=== PATIENT | male | born 1935 | race Hispanic/Latino ===

== ENCOUNTER 2018-05-28 19:13 | Inpatient (IN) | payer MEDICAID, SELFPAY ==
[2018-05-28] MEDS ORDERED: Morphine 2 MG/ML SYRINGE ONE (20:19)
[2018-05-28] MEDS ORDERED: Ondansetron PF 4 MG/2 ML Vial ONE ×2 (20:19→23:20)
[2018-05-28 20:23] LABS: #Basophils 0.1 thou/uL (0.0-0.2); #Eosinphils 0.3 thou/uL (0.0-0.7); #Lymphocytes 1.2 thou/uL (1.20-3.40); #Monocytes 0.5 thou/uL (0.11-0.59); #Neutrophils 5.2 thou/uL (1.40-6.50); %Basophils 0.9 % (0.0-1.0); %Eosinophils 4.3 % (0.0-10.0); %Lymphocytes 16.2 % (21.0-51.0); %Monocytes 7.3 % (0.0-10.0); %Neutrophils 71.4 % (42.0-75.0); Hemoglobin 13.4 g/dL (14.0-18.0); Mean Corpuscular HGB CONC 32.6 g/dL (32.0-36.0); Mean Corpuscular Hemoglobin 27.6 pg (27.0-31.0); Mean Corpuscular Volume 84.8 fL (78.0-98.0); Mean Platelet Volume 9.8 fL (7.4-10.4); Platelet Count 250 thou/uL (130-400); RBC Distribution Width 14.5 % (11.5-14.5); Red Blood Cell (RBC) Count 4.85 mill/uL (4.70-6.10); White Blood Cell (WBC) Count 7.3 thou/uL (4.8-10.8)
[2018-05-28 20:47] LABS: ALT (SGPT) 17 U/L (8-55); AST (SGOT) 35 U/L (5-34); Albumin 2.6 g/dL (3.4-4.8); Alkaline Phosphatase 147 U/L (40-150); Anion Gap 17 mmol/L (10-20); BUN (Urea Nitrogen) 24 mg/dL (8.4-25.7); Bilirubin, Total 0.9 mg/dL (0.2-1.2); Calc. Creatinine Clearance 0 mL/min (70-130); Calcium 8.4 mg/dL (7.8-10.44); Carbon Dioxide 18 mmol/L (23-31); Chloride 104 mmol/L (98-107); Estimated GFR-MDRD 45; Globulin 5.4 g/dL (2.4-3.5); Glucose 166 mg/dL (83-110); Lipase 34 U/L (8-78); Potassium 4.8 mmol/L (3.5-5.1); Sodium 134 mmol/L (136-145)
[2018-05-28] MEDS ORDERED: Labetalol HCl 100 MG/20 ML VIAL ONE (21:02)
[2018-05-28 21:42] LABS: CKMB 5.9 ng/mL (0-6.6)
--- NOTE | 2018-05-28 21:45 | RAD ---
CHEST ONE VIEW PORTABLE: 05/28/18 HISTORY: 82-year-old male with history of back pain for five days. Monitor leads overlie the chest. There are bilateral vascular congestive changes as well as interstit ial and alveolar parenchymal changes in the perihilar regions and lower lung zones with bilateral ple ural effusions. Findings are evidence for bilateral edema, although bilateral pneumonia could have a similar radiographic appearance. Correlate clinically. IMPRESSION: Bilateral vascular congestion and interstitial and alveolar parenchymal changes, primarily in the per ihilar regions and lower lung zones with bilateral pleural effusions, evidence for bilateral pulmonar y edema, although bilateral pneumonia could have a similar appearance. No old studies. POS: [facility]
[2018-05-28] MEDS ORDERED: Nitroglycerin 2% Ointment 1 INCH/1 GM Packet ONE (22:25)
--- NOTE | 2018-05-28 22:28 | CT ---
BRAIN CT WITHOUT IV CONTRAST: 05/28/18 HISTORY: Stroke alert. 82-year-old male with altered mental status and syncope. No focal mass or midline shift. No intra or extra-axial hemorrhage. There is some sinus mucosal bliss es. The mastoids are clear. IMPRESSION: No significant acute intracranial process. No mass or bleed. Findings discussed with Maddie Lord at 10:08 p.m. Code CR POS: [facility]
--- NOTE | 2018-05-28 22:46 | CT ---
CHEST CT SCAN WITH IV CONTRAST: 05/28/18 HISTORY: 82-year-old male with history of altered mental status, back pain for days. Exam was done following the head CTA, so this is an exam performed with IV contrast. Large bilateral pleural effusions are noted. Bilateral pleural based parenchymal changes, evidence fo r bilateral subsegmental atelectasis. Evidence for some bilateral vascular congestion. No evidence fo r aortic aneurysm. The central pulmonary arteries appear to be free of thrombus. Right renal cyst. Th e visualized liver, pancreas and spleen are unremarkable. No evidence for pneumothorax. No evidence f or visualized thoracic spine fracture. IMPRESSION: Large bilateral pleural effusions with bibasilar pleural based parenchymal changes evidence for subse gmental atelectasis. Bilateral vascular congestion. No pericardial effusion. No evidence for aortic a neurysm. The central pulmonary arteries are free of thrombus. Small right renal cyst. POS: [facility]
--- NOTE | 2018-05-28 23:39 | CT ---
CT ANGIOGRAM HEAD WITH 3D RENDERING CT ANGIOGRAM NECK WITH 3D RENDERIN05/28/18 HISTORY: AMS Syncapy unresponsive Initial attempt at the scan demonstrated no contrast media within the neck or head. The exam was rep eated and on this study there is only very dilute contrast media within the neck and head. It does no t appear that any additional new contrast media was injected at the time of the second study. CT ANGIOGRAM HEAD WITH 3D RENDERING: Limited contrast density considerably lowers the sensitivity of this study. No evidence for an M1 seg ment occlusion. Vertebrobasilar arteries appear intact. IMPRESSION: Limited study. No evidence for an M1 segment occlusion. CT ANGIOGRAM NECK WITH 3D RENDERING: Contrast concentration within the neck vessels is very severely limited. On the left side, at the dis dilip CCA, proximal ICA origin there is evidence for a large calcified and noncalcified plaque. I feel that this is associated with a high grade of stenosis although the exact degree of stenosis cannot be determined from this study due to lack of contrast density. The vertebral arteries in the neck are i nadequately seen. I certainly cannot exclude other stenotic changes within the neck vessels. IMPRESSION: Fairly large calcified and noncalcified plaque in the junction of the distal CCA, proximal ICA on the left side. This is certainly worrisome for a high grade sclerotic stenosis although cannot be furthe r characterized. The remainder of the neck vessels are inadequately seen to comment upon stenosis. Findings are discussed with Maddie Lord in the ER at 2328 hours. POS: [facility]
[2018-05-28] MEDS ORDERED: Enoxaparin Sodium 60 MG/0.6 ML SYRINGE ONE (23:44)
[2018-05-29] MEDS ORDERED: Furosemide 40 MG/4 ML VIAL ONE (00:26)
[2018-05-29 01:10] LABS: Actual Bicarbonate (HCO3a) 15.5 mEq/L (22-28); Analyzer IN Cardio ER; Base Excess (BEa) -7.5 mEq/L (-2.0 to +3.0); Calcium, Ionized 1.06 mmol/L (1.12-1.30); Carboxyhemoglobin (COHb) 0.4 gm% (0.0-3.0); O2 Tension (PaO2) 90.9 mmHg (> 60.0); Potassium - ABG Lab 5.29 mmol/L (3.70-5.30); pH, Arterial 7.41 (7.35-7.45)
[2018-05-29 01:12] LABS: ALV-art Gradient 77.115 (0-20); CO2 Tension 25.3 mmHg (35.0-45.0); Puncture Site RRA
[2018-05-29 02:59] LABS: Troponin I 0.946 ng/mL (< 0.028)
[2018-05-29] MEDS ORDERED: Senokot S 8.6-50 MG TAB PO PRN (03:15)
[2018-05-29] MEDS ORDERED: Acetaminophen 325 MG TAB PO PRN (03:15)
[2018-05-29] MEDS ORDERED: Bisacodyl 5 MG TAB PO PRN (03:15)
[2018-05-29 06:08] LABS: #Lymphocytes 0.4 thou/uL (1.20-3.40); #Monocytes 0.4 thou/uL (0.11-0.59); #Neutrophils 8.1 thou/uL (1.40-6.50); %Basophils 0.1 % (0.0-1.0); %Eosinophils 0.3 % (0.0-10.0); %Lymphocytes 4.9 % (21.0-51.0); %Monocytes 4.8 % (0.0-10.0); Hemoglobin 12.6 g/dL (14.0-18.0); Mean Corpuscular HGB CONC 32.4 g/dL (32.0-36.0); Mean Corpuscular Hemoglobin 27.7 pg (27.0-31.0); Mean Corpuscular Volume 85.6 fL (78.0-98.0); Mean Platelet Volume 10.3 fL (7.4-10.4); Platelet Count 230 thou/uL (130-400); RBC Distribution Width 14.6 % (11.5-14.5); Red Blood Cell (RBC) Count 4.53 mill/uL (4.70-6.10); White Blood Cell (WBC) Count 8.9 thou/uL (4.8-10.8)
[2018-05-29 06:14] LABS: Anion Gap 18 mmol/L (10-20); BUN (Urea Nitrogen) 28 mg/dL (8.4-25.7); Calc. Creatinine Clearance 37 mL/min (70-130); Calcium 8.2 mg/dL (7.8-10.44); Carbon Dioxide 20 mmol/L (23-31); Chloride 102 mmol/L (98-107); Estimated GFR-MDRD 40; Glucose 199 mg/dL (83-110); Potassium 5.6 mmol/L (3.5-5.1); Sodium 134 mmol/L (136-145)
[2018-05-29] MEDS: Furosemide 40 MG/4 ML VIAL SLOW IVP SCH ×2 (06:14→14:01)
[2018-05-29] MEDS ORDERED: Dextrose 50% Abboject 50 ML SYRINGE SLOW IVP PRN (08:26)
[2018-05-29] MEDS ORDERED: Dextrose 5% in Water 1,000 ML IV PRN (08:26)
--- NOTE | 2018-05-29 08:36 | PDOC.PN ---
- Subjective Encounter Start Date: 05/29/18 Encounter Start Time: 08:32 Subjective: neck pain, sob - Objective Resuscitation Status - Order Detail: 05/29/18 01:43 Resuscitation Status Routine Resuscitation Status: FULL: Full Resuscitation MAR Reviewed: Yes Vital Signs & Weight: Vital Signs (12 hours) Temp Pulse Resp BP Pulse Ox 05/29/18 07:50 98.9 F 96 14 125/100 H 100 05/29/18 04:45 97.6 F 05/29/18 04:00 96.0 F L 92 24 H 125/105 H 100 05/29/18 01:35 96.8 F L 99 20 143/107 H 100 Weight Weight 162 lb 6 oz I&O: 05/28/18 05/29/18 05/30/18 06:59 06:59 06:59 Output Total 150 Balance -150 Result Diagrams: 05/29/18 04:18 05/29/18 04:18 Radiology Reviewed by me: Yes (cxr- PCC) EKG Reviewed by me: Yes (RSR, S) Phys Exam - Physical Examination Cardiovascular: RRR, no significant murmur Gastrointestinal: soft, positive bowel sounds Musculoskeletal: no edema Dx/Plan (1) Acute heart failure Code(s): I50.9 - HEART FAILURE, UNSPECIFIED Status: Acute Qualifiers: Heart failure type: unspecified Qualified Code(s): I50.9 - Heart failure, unspecified (2) NSTEMI (non-ST elevated myocardial infarction) Code(s): I21.4 - NON-ST ELEVATION (NSTEMI) MYOCARDIAL INFARCTION Status: Acute (3) DM type 2 causing CKD stage 3 Code(s): E11.22 - TYPE 2 DIABETES MELLITUS W DIABETIC CHRONIC KIDNEY DISEASE; N18.3 - CHRONIC KIDNEY DISEASE, STAGE 3 (MODERATE) Status: Acute Qualifiers: Diabetes mellitus snf insulin use: without moth exterminator use Qualified Code(s): E11.22 - Type 2 diabetes mellitus with diabetic chronic kidney disease ; N18.3 - Chronic kidney disease, stage 3 (moderate) (4) HTN (hypertension) Code(s): I10 - ESSENTIAL (PRIMARY) HYPERTENSION Status: Chronic Qualifiers: Hypertension type: essential hypertension Qualified Code(s): I10 - Essential (primary) hypertension - Plan lasix 40 bid, apresoline 25 tid, imdur 30 qam. no DOLORES/ARB- CKD -: lovenox Tx dose -: echo pending * .
[2018-05-29] MEDS ORDERED: Prevnar 13-Val Conj/PF 0.5 ML SYRINGE IM ONE (09:00)
[2018-05-29] MEDS ORDERED: Enoxaparin Sodium 30 MG/0.3 ML SYRINGE SC SCH (09:00)
[2018-05-29] MEDS: hydrALAZINE 25 MG TAB PO SCH ×3 (09:27→20:34)
[2018-05-29] MEDS: Famotidine 20 MG TAB PO SCH (09:27)
[2018-05-29] MEDS: Enoxaparin Sodium 80 MG/0.8 ML SYRINGE SC SCH ×2 (09:27→20:35)
[2018-05-29] MEDS: Famotidine/PF 20 mg/2ml Vial SLOW IVP SCH (09:29)
--- NOTE | 2018-05-29 09:54 | HP ---
CHIEF COMPLAINT: Shortness of breath. HISTORY OF PRESENT ILLNESS: This is an 82-year-old male with past medical history of leukemia, diabetes mellitus presenting with shortness of breath which has been ongoing for one day. On the day of admission, the patient was having severe shortness of breath and daughter stated that due to the shortness of breath, it prompted the ED visit. The patient is also having associated symptom of back pain which has been ongoing for four days. The patient's back pain is rated at 6/10. Upon further investigation, the patient's daughter stated that the patient has been having difficulty with breathing. He has been having chest congestion and "the patient looks very sick." The patient currently endorses shortness of breath and cough, but denies any fever, nausea, vomiting, chest pain, palpitations, abdominal pain, dysuria, hematuria, hematochezia, melena. Of note, in the ED the patient was noted to have diaphoresis, alteration of awareness, and the patient was not responsive as he was when he came in. REVIEW OF SYSTEMS: Positive for back pain, cough, shortness of breath. PAST MEDICAL HISTORY: Leukemia, hypertension, diabetes mellitus. FAMILY HISTORY: Reviewed, noncontributory to this visit. PAST SURGICAL HISTORY: No surgical history. PSYCH HISTORY: No psych history. SOCIAL HISTORY: The patient denies alcohol use. Denies any illicit drug use. Denies any smoking history. CURRENT MEDICATIONS: The patient takes metformin. ALLERGIES: NO KNOWN DRUG ALLERGIES. PHYSICAL EXAMINATION: VITAL SIGNS: The patient's blood pressure is 143/124, pulse of 98, respiratory rate of 17, and temperature of 97.8. GENERAL: The patient is alert, oriented x3, not in acute distress. The patient is lying in bed and the patient is in mild distress. HEENT: Normocephalic and atraumatic. Pupils are equally round and reactive to light. Extraocular movements are intact. No scleral icterus. The patient do have nasal cannula in place. Mucous membranes are dry. NECK: There is mild JVD that can be appreciated. Full range of motion. Supple. LUNGS: There is bilateral rhonchi and wheezes that can be appreciated at the anterior and posterior lung connelly bilaterally. CARDIAC: The patient do have positive S1 and S2. Regular rate and rhythm. No murmurs can be appreciated at this time. ABDOMEN: Obese abdomen. Soft, nontender, nondistended. Positive bowel sounds in all quadrants. EXTREMITIES: The patient has 5/5 upper extremity strength with good pulses and 5/5 lower extremity with good pulses with 1+ pitting edema noted. NEURO: Cranial nerves 2 through 12 grossly intact. SKIN: The patient is very pale and appears jaundiced. PSYCH: Normal affect. DIAGNOSTIC DATA: EKG, the patient has sinus tachycardia of 108. IMAGING STUDIES: CT of the head is negative. There is no bleed, no masses, no acute ischemic stroke. CTA of the neck shows large left soft calcified plaque located at the CCA/ICA junction with high stenosis. CT of the chest shows bilateral pleural effusions. No pulmonary emboli noted. LABORATORY DATA: WBC 7.3, hemoglobin 13.4, hematocrit is 41.1, platelets 250. ABGs; pH 7.4, pCO2 is 25, pO2 is 90, O2 saturation is 96. Sodium is 134, potassium is 4.8, chloride is 104, carbon dioxide of 18, anion gap of 17, BUN is 24, creatinine is 1.50. GFR of 45, glucose is 166, AST is 35, ALT is 17. Troponin is 0.858, 0.890, and 0.946. BNP is 2767.1. Prolactin is 52.56. ASSESSMENT AND PLAN: This is an 82-year-old male presenting with: 1. Acute respiratory failure likely due to congestive heart failure exacerbation. At this point, the patient has been started on nasal cannula oxygenation. We will continue oxygenation. We will start the patient on BiPAP if the patient's oxygenation declines. We will start the patient on Lasix IV. We will monitor strict in's and out's and will admit the patient to the IMCU. 2. Alteration of awareness, lethargy, which was found in the ED, likely due to stroke. The patient's prolactin level is 59. At this point, we will get Neurology consult and we will evaluate the patient for a seizure activity. 3. Acute kidney injury, likely due to diuresis. The patient's creatinine is 1.5. The patient is receiving Lasix at this time. Due to the patient's bilateral pleural effusion, we are going to continue Lasix. We have consulted Pulmonology. The patient will benefit from thoracentesis. 4. History of leukemia, likely causing malignant effusions. We will follow up with occ ther recommendation regarding possible thoracentesis. We will continue Lasix at this time. 5. Congestive heart failure exacerbation. We have ordered for an echo. We will follow up on echo. We will also follow up with Cardiology recommendations. 6. Elevated troponins, likely due to congestive heart failure exacerbation and chronic kidney disease. At this point, the patient's troponin is mildly elevated. We will continue to trend the patient's troponins. We have Cardiology consult. We will monitor the patient closely. 7. Deep venous thrombosis and gastrointestinal prophylaxis. Critical care time is greater than 60 minutes. Job ID: [id number]
[2018-05-29] MEDS ORDERED: Iopamidol 370 76% 100 ML VIAL ONE (10:50)
--- NOTE | 2018-05-29 14:27 | EKG ---
Test Reason : Blood Pressure : / mmHG Vent. Rate : 074 BPM Atrial Rate : 074 BPM P-R Int : 108 ms QRS Dur : 090 ms QT Int : 462 ms P-R-T Axes : -10 -18 -88 degrees QTc Int : 512 ms Sinus rhythm with short MT with Premature atrial complexes with Abberant conduction Prolonged QT Abnormal ECG Confirmed by ROCIO HOYOS, MIKEY Harry ([id number]), continuity editor SAMEER AHINES ([id number]) on 05/29/2018 2:26:47 PM Referred By: Confirmed By:MIKEY CHAN MD
--- NOTE | 2018-05-29 14:27 | EKG ---
Test Reason : Blood Pressure : / mmHG Vent. Rate : 108 BPM Atrial Rate : 108 BPM P-R Int : 124 ms QRS Dur : 096 ms QT Int : 366 ms P-R-T Axes : 013 -06 212 degrees QTc Int : 490 ms Sinus tachycardia Abnormal ECG Confirmed by ROCIO HOYOS, MIKEY Harry ([id number]), society editor SAMEER HAINES ([id number]) on 05/29/2018 2:26:46 PM Referred By: Confirmed By:MIKEY CHAN MD
[2018-05-29] MEDS ORDERED: predniSONE 20 MG TAB PO SCH (15:30)
[2018-05-29] MEDS ORDERED: Lidocaine 1% (PF) 30 ML VIAL FS SCH (16:45)
[2018-05-29] MEDS: HumaLOG 300 UNITS/3 ML VIAL SC PRN (17:28)
[2018-05-29 17:45] LABS: BF Color Yellow; BF RBC Count - Manual 296 /cumm; Body Fluid Source PLEURAL FLUID; Clarity Hazy (Clear); RBC Background Count 0.003; Tube # EDTA; WBC/NonHematic-Auto 358 /cumm
[2018-05-29 18:07] LABS: Pleural Fluid, Protein 1.2 g/dL
[2018-05-29 19:18] LABS: BF Segmented Neutrophils 39 %; Cell Count Non Hematic 50 %; Lymphocytes 10 %
--- NOTE | 2018-05-29 19:25 | CON ---
DATE OF CONSULTATION: 05/29/2018 REASON FOR CONSULTATION: Heart failure. HISTORY OF PRESENT ILLNESS: Mr. Bains is a pleasant 82-year-old gentleman, Bur[place]ian-speaking only, who comes to the hospital for increasing shortness of breath. He was doing just fine. He has a history of leukemia and follows up with Dr. Pabon. He saw him about 2 weeks ago. He was looking just fine. He did very well. A few days after that he went to see his son, who was in residential and waiting to be deported. He came back from that very sad and has not been eating since. He is crying all day long and all the time, he just feels completely depressed after seeing his son in residential. He has noted increased shortness of breath in the last two weeks, to the point where yesterday, he could not breathe. He felt he was drowning. He was also complaining in that timeframe for those 2 weeks, pain in the midscapular area behind on his back. He states that the pain was worse when he would move his arms. He came in yesterday, was altered for a while. Troponins were mildly elevated. Cardiology is being consulted for further evaluation. He was given IV Lasix. He has large pleural effusions and had a thoracentesis earlier today, which he got about a liter of fluid. He is breathing much better since. PAST MEDICAL HISTORY: 1. Hypertension. 2. Type 2 diabetes. 3. Leukemia. FAMILY HISTORY: No early coronary artery disease. PAST SURGICAL HISTORY: None. OUTPATIENT MEDICATIONS: 1. Metformin. 2. He is on a medication for his leukemia, but he does not remember the name. SOCIAL HISTORY: No alcohol use. No drug use. No tobacco. ALLERGIES: NO KNOWN DRUG ALLERGIES. PHYSICAL EXAMINATION: VITAL SIGNS: Temperature 97.8, pulse 97, respiratory rate 13, saturating 96% on 2 L, and blood pressure 134/90. GENERAL: Awake, alert, and oriented x3, in no distress. HEENT: Normocephalic and atraumatic. NECK: Supple. LUNGS: Have mild crackles at the bases. CARDIOVASCULAR: S1 and S2. Positive S3. No S4. ABDOMEN: Soft. EXTREMITIES: No edema. SKIN: Warm and dry. LABORATORY DATA: Laboratory work was reviewed. White count of 7.3, hemoglobin of 13.4, hematocrit 41, and platelet count of 250. Blood gas was reviewed. Chemistries were reviewed. Creatinine went from 1.5 to 1.68 after Lasix was given. GFR of 40 and glucose of 199. Troponin went from 0.85 to 0.89 to 0.94. EKG was reviewed. Deep T-wave inversions on anterior leads. Echocardiogram was reviewed, which shows an EF of 15% to 20% with severe MR and [id number] TR. Chest x-ray was reviewed. CT of the brain was reviewed. ASSESSMENT AND PLAN: 1. Acute on chronic systolic heart failure. 2. Severe dilated cardiomyopathy. 3. History of leukemia. PLAN: 1. He is doing much better from a fluid standpoint. He is feeling much comfortable after a large amount of fluid taken out of his lung and diuresing very well. May need a little more diuresis once he is able to lay flat. We will discuss with family if they want to proceed with heart catheterization to evaluate for ischemia. 2. Blood pressure permitting, we will start some heart failure medications with an DOLORES inhibitor and the beta royce. Right now, his creatinine is on his way up, so we would hold off on any DOLORES inhibitors. 3. Agree with CT angio of the neck. 4. We will follow. Job ID: [id number]
--- NOTE | 2018-05-29 19:58 | CON ---
DATE OF CONSULTATION: 05/29/2018 SERVICE: Pulmonary Medicine. REASON FOR CONSULTATION: CU patient. HISTORY OF PRESENT ILLNESS: The patient is an 82-year-old male with past medical history significant for essentially nothing. He has never gone to the physicians for most of his life. We certainly do not have any records on him. He has lots of home remedies for lots of different things. Ultimately, he was brought to the emergency department because of increasing shortness of breath and a cough that has been going on for duration of about 4 or 5 days. He is bringing up yellow phlegm. He is also having some back discomfort. Otherwise, he did not have any significant symptoms. He did not have any fevers or chills, nausea, vomiting, or diarrhea; hot, red, swollen joints or rashes. In the emergency room, he was discovered to have bilateral pleural effusions. He also had either chronic kidney disease or an acute kidney injury. He is accompanied by his granddaughter, who is helping me translate as this gentleman is Greenlandic-speaking only. PAST MEDICAL HISTORY: 1. Leukemia. 2. Hypertension. 3. Type 2 diabetes mellitus. PAST SURGICAL HISTORY: None. FAMILY HISTORY: Noncontributory. SOCIAL HISTORY: Denies alcohol use or illicit drug use. Denies any history of smoking. ALLERGIES: NO KNOWN DRUG ALLERGIES. MEDICATIONS: List of his inpatient medications was reviewed. Multiple updates were made. REVIEW OF SYSTEMS: General, head, ears, eyes, nose, throat, cardiovascular, respiratory, GI, , musculoskeletal, neurologic, and skin are negative except as mentioned in the HPI. PHYSICAL EXAMINATION: VITAL SIGNS: Afebrile, pulse 97, blood pressure 136/97, respirations 28, and saturation 95% on 2 L nasal cannula. GENERAL: The patient is awake and alert, in no apparent distress. LUNGS: Decent air entry. Crackles are present throughout bilateral lung connelly. There is not really prolonged expiratory phase, but I hear a little bit of wheezing and rhonchi present. There is decreased air entry at the bibasilar region. HEART: Normal rate. Regular. ABDOMEN: Soft, nontender, and nondistended. Bowel sounds are positive. MUSCULOSKELETAL: No cyanosis or clubbing. There is no pitting in the bilateral lower extremities. If anything, he has skin tenting. : No Luz. NEUROLOGIC: Grossly nonfocal. LABORATORY DATA: WBC 8.9, hemoglobin 12.6, and platelets 230,000. A pH of 7.41 , pCO2 of 25, and pO2 of 91. He was on 3 L nasal cannula at that time. Creatinine 1.68, which is trending upward and BUN 28. Basic metabolic profile is otherwise unremarkable. Potassium is 5.6. Troponin 0.9. Ammonia 43, prolactin 52, and TSH 3.8. Liver function studies are essentially unremarkable. BNP 2700. ASSESSMENT: 1. Acute hypoxic respiratory failure. 2. Bilateral pleural effusions. 3. Minimal atelectasis in the bibasilar region without any overt consolidating changes identified. 4. Hyperkalemia. 5. Acute bronchitis. DISCUSSION AND PLAN: I will give the patient a 5-day course of antibiotic and steroid. I am going to suspend his Lasix for the time being. We will perform a thoracentesis just to prove we are dealing with a transudate. If that is what it is, we can continue our Lasix through time. Pulmonary Critical Care will continue to follow in this location. If he is stable hemodynamically into tomorrow, we can consider transitioning him to the floor. I will give him a dose of Kayexalate to decrease his potassium. It would be interesting to know the circumstances that surround this lymphoma. 70 minutes have been devoted to this patient in various activities. I personally reviewed all imaging studies and laboratory data noted within this document. For fifty percent of this time, I was interacting with the patient at the bedside or coordinating care with the care team. For the remainder of the time I was immediately available to the patient in the hospital unit. Job ID: [id number] [facility]
--- NOTE | 2018-05-29 21:55 | CON ---
DATE OF CONSULTATION: REASON FOR CONSULTATION: Chronic myelogenous leukemia. HISTORY OF PRESENT ILLNESS: Mr. 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 He has undergone treatment with Gleevec, Tasigna and most recently ponatinib. He was last seen by Dr. Pabon on May 13, where he felt well and had no issues. Over the last week, he has become progressively weaker with shortness of breath. He presented to the emergency room for evaluation. A chest x-ray showed bilateral vascular congestion with interstitial changes consistent with bilateral pleural effusions and pulmonary edema. He underwent a brain CT and a CT angio of [place], there is some evidence of acute stroke. He had positive troponin and elevated prolactin and an elevated BNP of 2700. He was admitted for CHF exacerbation, pleural effusion, and hypoxia. He has been diuresed over the last 24 hours. History was obtained from his granddaughter. She was used as an chairman ceo. PAST MEDICAL HISTORY: 1. CML. 2. Diabetes mellitus 2. 3. Arthritis. 4. Hyperlipidemia. PAST SURGICAL HISTORY: None. ALLERGIES: NO KNOWN DRUG ALLERGIES. HOME MEDICATIONS: 1. Glyburide 5 mg t.i.d. 2. Lantus 15 units q.p.m. 3. Metformin 500 mg t.i.d. 4. Valium at bedtime. 5. Vytorin 10/20 one p.o. daily. FAMILY HISTORY: Positive for diabetes. No history of leukemia. SOCIAL HISTORY: , has a children. Lives with his spouse, non-Panamanian speaking. No alcohol or illicit drug use. REVIEW OF SYSTEMS: Positive for shortness of breath, back pain, and weakness. PHYSICAL EXAMINATION: VITAL SIGNS: Temperature is 97.8, pulse is 97, respiratory rate 13, blood pressure is 134/90, and he is 96% on 2 L. GENERAL: Chronically ill-appearing male, in no acute distress. HEENT: Normocephalic and atraumatic. Pupils are equal and reactive to light. NECK: Supple. CV: Regular rate and rhythm. LUNGS: He has crackles throughout, anterior. ABDOMEN: Soft and nontender. Bowel sounds are positive. EXTREMITIES: No clubbing, cyanosis, or edema. SKIN: No rash. HEMATOLOGIC: No petechiae or purpura. NEUROLOGIC: Nonfocal. PSYCHIATRIC: The patient is somnolent, but appropriate. PERTINENT LABS AND X-RAYS: Current WBCs are 8.9, hemoglobin 12.6, hematocrit 38.8, platelet count 230,000. He has 90% neutrophils and 5% lymphocytes. Sodium is 134, potassium 5.6, chloride 102, CO2 is 20, BUN is 28, creatinine 1.68, and calcium is 8.2. Total bilirubin is 0.9, AST 35, ALT 17, alkaline phosphatase is 147, and ammonia is 43. CK-MB is 5.9. Troponin is 0.890. BNP is 2767. Serum total protein is 8. Albumin 2.6, globulin 5.4, and prolactin is 52.56. TSH is 3.87. Radiology per HPI. ASSESSMENT: 1. 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 2. Bilateral pleural effusions. 3. Elevated BNP. 4. Acute kidney injury. DISCUSSION: The patient has been diuresed with minimal reduction in his pleural effusions. Dr. Robertson has seen the patient and recommends a thoracentesis. Agree with procedure. Would send fluid for histology. Ponatinib can cause pleural effusions and CHF, although this is extremely rare. He was seen in the clinic two weeks ago with no complaints. He has been on this medication for 6 months. Plan to hold ponatinib at this time and continue further cardiac workup and echo as planned. We will follow along with the patient's hospital stay. Thank you for the consult. Job ID: [id number] [facility]
--- NOTE | 2018-05-30 10:33 | OP ---
DATE OF PROCEDURE: 05/30/2018 SERVICE: Pulmonary Medicine. PROCEDURE: Left-sided pleural drainage with catheter insertion under ultrasound guidance. CONSENT: Risks and benefits of this procedure were explained to the patient. All questions were answered and alternative options explained. MEDICATIONS: Lidocaine 1% without epinephrine, total quantity 10 mL. PREOPERATIVE DIAGNOSES: 1. Acute hypoxic respiratory failure. 2. Pleural effusion. POSTOPERATIVE DIAGNOSES: 1. Acute hypoxic respiratory failure. 2. Pleural effusion. DESCRIPTION OF PROCEDURE: Time-out was performed by the procedure team. The patient was positively identified using name and date of . The procedure site was marked. Vital sign monitoring was accomplished by noninvasive hemodynamic monitoring, pulse oximetry, and telemetry. In the seated position, the left posterior hemothorax was examined using ultrasound probe. The diaphragm and pleural fluid were easily identified. The skin was prepped and draped in the usual sterile fashion and anesthetized with 1% lidocaine without epinephrine. A final needle was inserted in the pleural space with return of clear yellow fluid. The pleural drainage catheter was then inserted in same location. A total quantity of 1100 mL of pleural fluid was withdrawn by syringe pump technique. A sample was sent for analysis. Evacuation of fluid was terminated because the fluid stopped coming. At the end of the procedure, estimated pleural pressures, measured by manometry, was -18 cm of pleural fluid. The intact catheter was withdrawn on exhalation and a sterile dressing was applied. The patient had stable vitals throughout the entire procedure. ESTIMATED BLOOD LOSS: 1 mL. COMPLICATIONS: None. Job ID: [id number]
[2018-05-30] MEDS: predniSONE 20 MG TAB PO SCH ×2 (10:49→12:52)
[2018-05-30] MEDS: Enoxaparin Sodium 80 MG/0.8 ML SYRINGE SC SCH ×3 (10:49→21:07)
[2018-05-30] MEDS: Famotidine/PF 20 mg/2ml Vial SLOW IVP SCH ×2 (10:50→12:53)
[2018-05-30] MEDS: Famotidine 20 MG TAB PO SCH ×2 (10:50→12:52)
[2018-05-30] MEDS: hydrALAZINE 25 MG TAB PO SCH ×4 (10:50→21:07)
--- NOTE | 2018-05-30 13:34 | PDOC.PN ---
- Subjective Encounter Start Date: 05/30/18 Encounter Start Time: 08:20 Pt seen for followup re: acute hypoxic respiratory failure. says he feels better. No chest pain. Breathing is better. - Objective Resuscitation Status - Order Detail: 05/29/18 01:43 Resuscitation Status Routine Resuscitation Status: FULL: Full Resuscitation Vital Signs & Weight: Vital Signs (12 hours) Temp Pulse Resp BP Pulse Ox 05/30/18 12:53 91 05/30/18 10:46 98.4 F 18 128/94 H 05/30/18 07:23 98.2 F 137/93 H 05/30/18 03:42 98.8 F 91 18 117/81 97 Weight Weight 155 lb 7 oz I&O: 05/29/18 05/30/18 05/31/18 06:59 06:59 06:59 Intake Total 1140 Output Total 150 1000 Balance -150 140 Result Diagrams: 05/29/18 04:18 05/29/18 04:18 Additional Labs: Accuchecks 05/30/18 05/30/18 05/29/18 10:23 05:46 19:14 POC Glucose 152 H 172 H 193 H 05/29/18 16:32 POC Glucose 182 H Phys Exam - Physical Examination Constitutional: NAD HEENT: moist MMs, sclera anicteric, oral pharynx no lesions, 2+ tonsils Neck: no nodes, supple, full ROM JVD Diminished breath sounds at both bases Cardiovascular: RRR, no rub S1, S2 Gastrointestinal: soft, non-tender, no distention, positive bowel sounds Neurological: moves all 4 limbs Psychiatric: normal affect Dx/Plan (1) Acute systolic congestive heart failure, NYHA class 3 Code(s): I50.21 - ACUTE SYSTOLIC (CONGESTIVE) HEART FAILURE Status: Acute Comment: Improving with diuretics, s/p thoracentesis; ACC/AHA Class C (2) CKD stage 3 secondary to diabetes Code(s): E11.22 - TYPE 2 DIABETES MELLITUS W DIABETIC CHRONIC KIDNEY DISEASE; N18.3 - CHRONIC KIDNEY DISEASE, STAGE 3 (MODERATE) Status: Acute Comment: follow creatinine, lytes (3) NSTEMI (non-ST elevated myocardial infarction) Code(s): I21.4 - NON-ST ELEVATION (NSTEMI) MYOCARDIAL INFARCTION Status: Acute Comment: cardiology following (4) HTN (hypertension) Code(s): I10 - ESSENTIAL (PRIMARY) HYPERTENSION Status: Chronic Qualifiers: Hypertension type: essential hypertension Qualified Code(s): I10 - Essential (primary) hypertension Comment: controlled (5) DM2 (diabetes mellitus, type 2) Status: Chronic Qualifiers: Chronic kidney disease stage: stage 3 (moderate) Comment: continue accuchecks, insulin sliding scale - Plan plan discussed w/ family * . Review of Systems - Review of Systems Constitutional: negative: fever, chills, sweats, weakness, malaise Respiratory: SOB with Excertion. negative: Cough, Shortness of Breath, Hemoptysis, Pleuritic Pain, Sputum, Wheezing Cardiovascular: negative: chest pain, palpitations, orthopnea, paroxysmal nocturnal dyspnea, edema, light headedness Gastrointestinal: negative: Nausea, Vomiting, Abdominal Pain, Diarrhea, Constipation, Melena, Hematochezia Genitourinary: negative: Dysuria, Frequency, Incontinence, Hematuria, Retention - Medications/Allergies Allergies/Adverse Reactions: Allergies Allergy/AdvReac Type Severity Reaction Status Date / Time No Known Allergies Allergy Verified 05/29/18 03:43 Medications: Current Medications Acetaminophen (Tylenol) 650 mg PO Q4H PRN PRN Reason: Headache/Fever/Mild Pain (1-3) Aspirin (Aspirin Chewable) 81 mg PO DAILY [facility] Last Admin: 05/30/18 12:53 Dose: 81 mg Bisacodyl (Dulcolax) 10 mg PO DAILYPRN PRN PRN Reason: Constipation Dextrose/Water (Dextrose 50%) 25 gm SLOW IVP PRN PRN PRN Reason: Hypoglycemia Enoxaparin Sodium (Lovenox) 70 mg SC 0900,2100 [facility] Last Admin: 05/30/18 12:53 Dose: 70 mg Famotidine (Pepcid) 20 mg SLOW IVP DAILY [facility] Last Admin: 05/30/18 12:53 Dose: 20 mg Famotidine (Pepcid) 20 mg PO DAILY [facility] Last Admin: 05/30/18 12:52 Dose: 20 mg Glucagon (Glucagon) 1 mg IM PRN PRN PRN Reason: Hypoglycemia Hydralazine HCl (Apresoline) 25 mg PO TID [facility] Last Admin: 05/30/18 12:53 Dose: 25 mg Dextrose/Water (D5w) 1,000 mls @ 0 mls/hr IV .Q0M PRN PRN Reason: Hypoglycemia Insulin Human Lispro (Humalog) 0 units SC .MILD SLIDING SCALE PRN PRN Reason: Mild Correctional Scale Last Admin: 05/29/18 17:28 Dose: 2 unit Isosorbide Mononitrate (Imdur Er) 30 mg PO DAILY [facility] Last Admin: 05/30/18 12:53 Dose: 30 mg Levofloxacin (Levaquin) 750 mg PO 0600 [facility] Last Admin: 05/30/18 10:49 Dose: Not Given Prednisone (Prednisone) 40 mg PO QAM-[facility] Last Admin: 05/30/18 12:52 Dose: 40 mg Senna/Docusate Sodium (Senokot S) 2 tab PO BIDPRN PRN PRN Reason: Constipation Sodium Chloride (Flush - Normal Saline) 10 ml IVF Q12HR [facility] Last Admin: 05/30/18 12:54 Dose: 10 ml Sodium Chloride (Flush - Normal Saline) 10 ml IVF PRN PRN PRN Reason: Saline Flush Last Admin: 05/29/18 06:15 Dose: 10 ml
--- NOTE | 2018-05-30 14:49 | PDOC.CTH ---
Cardiology Progress Note - Subjective He feels much better today. He wants to go home. He denies any chest pain, tightness, pressure, SOB. - Objective Vital Signs Temp Pulse Resp BP Pulse Ox 05/30/18 12:53 91 05/30/18 10:46 98.4 F 18 128/94 H 05/30/18 07:23 98.2 F 137/93 H 05/30/18 03:42 98.8 F 91 18 117/81 97 Weight 155 lb 7 oz 05/29/18 05/30/18 05/31/18 06:59 06:59 06:59 Intake Total 1140 Output Total 150 1000 Balance -150 140 - Physical Examination General/Neuro: alert & oriented x3, NAD Neck: no JVD present Lungs: unlabored respirations, other: (no vbretah sounds on right base.) Heart: RRR Abdomen: NT/ND Extremities: other: (no edema) - Telemetry Telemetry Rhythm: NSR - Labs Result Diagrams: 05/29/18 04:18 05/29/18 04:18 Troponin/CKMB CK-MB (CK-2) 5.9 ng/mL (0-6.6) 05/28/18 19:57 Troponin I 0.946 ng/mL (< 0.028) H* 05/29/18 02:18 - Assessment/Plan 1. Acute on chronic systolic heart failure. 2. Dilated CM EF at 10-15% 3. Carotid disease. 4. Leukemia PLAN: - We had a long conversation with him and his son about possibly doing a LHC in the next few days. Currently he is not interested in any further invasive interventions. He states he is 89yo and feels so much better he just wants pills for this. - Continue IV lasix. If creatinine increases with diuresis he will need dobutamine drip at 5 to improve diuresis. - He will talk to family members about possible LHC. For now continue diuresis.
[2018-05-30] MEDS ORDERED: Furosemide 40 MG/4 ML VIAL SLOW IVP SCH (15:00)
--- NOTE | 2018-05-30 15:00 | PRG ---
DATE OF SERVICE: 05/30/2018 SERVICE: Pulmonary Medicine. INTERVAL HISTORY: The patient is doing really well from respiratory standpoint. He states he is breathing comfortably. His strength is coming back. He denies any current fevers or chills. He is coughing, but not generating any phlegm. I can hear the phlegm down in his chest, but he will not liberate any. OBJECTIVE: HEENT: Normocephalic and atraumatic. Sclerae white. Conjunctivae pink. Oral mucosa is moist without lesions. LUNGS: Excellent air entry on the right. Decreased air entry at the left base. Rhonchi and crackles are both present. HEART: Normal rate. Regular. ABDOMEN: Soft, nontender, and nondistended. Bowel sounds are positive. MUSCULOSKELETAL: No cyanosis or clubbing. There is no pitting in the bilateral lower extremities. If anything, he has skin tenting throughout. : No Luz. NEUROLOGIC: Grossly nonfocal. IMAGING DATA: Echocardiogram demonstrates ejection fraction of 15% to 20%. [id number] tricuspid regurgitation is present. There is severe mitral regurgitation as well. ASSESSMENT: 1. Acute hypoxic respiratory failure, resolved. 2. Bilateral pleural effusion, status post thoracentesis on the right demonstrating a very clear transudate. 3. Minimal atelectasis in the bibasilar region without any overt consolidating changes. 4. Acute systolic and valvular heart failure. 5. Acute bronchitis, possible. 6. Hyperkalemia, resolved. DISCUSSION AND PLAN: The patient is stable for transition out of the IMCU to the telemetry unit. Pulmonary Critical Care will continue to follow along for the time being. I would give him 5 days of antibiotics. The positive culture on the fluid is a red velarde. It is a clear transudate and that most likely represents a contaminant. I would not treat him for this. Job ID: [id number]
[2018-05-30 15:11] LABS: #Lymphocytes 0.7 thou/uL (1.20-3.40); #Monocytes 0.5 thou/uL (0.11-0.59); #Neutrophils 8.4 thou/uL (1.40-6.50); %Basophils 0.3 % (0.0-1.0); %Eosinophils 0.3 % (0.0-10.0); %Lymphocytes 7.6 % (21.0-51.0); %Monocytes 5.3 % (0.0-10.0); %Neutrophils 86.6 % (42.0-75.0); Mean Corpuscular HGB CONC 32.5 g/dL (32.0-36.0); Mean Corpuscular Hemoglobin 27.6 pg (27.0-31.0); Mean Platelet Volume 10.1 fL (7.4-10.4); Platelet Count 251 thou/uL (130-400); RBC Distribution Width 14.7 % (11.5-14.5); Red Blood Cell (RBC) Count 4.72 mill/uL (4.70-6.10); White Blood Cell (WBC) Count 9.7 thou/uL (4.8-10.8)
[2018-05-30 15:35] LABS: Anion Gap 16 mmol/L (10-20); BUN (Urea Nitrogen) 38 mg/dL (8.4-25.7); Calc. Creatinine Clearance 28 mL/min (70-130); Calcium 7.9 mg/dL (7.8-10.44); Carbon Dioxide 24 mmol/L (23-31); Estimated GFR-MDRD 31; Glucose 260 mg/dL (83-110)
[2018-05-30 15:41] LABS: Chloride 104 mmol/L (98-107); Potassium 3.9 mmol/L (3.5-5.1); Sodium 140 mmol/L (136-145)
[2018-05-30] MEDS: HumaLOG 300 UNITS/3 ML VIAL SC PRN (16:52)
[2018-05-30] MEDS: Carvedilol 3.125 MG TAB PO SCH (21:06)
[2018-05-31] MEDS: Furosemide 40 MG/4 ML VIAL SLOW IVP SCH ×2 (05:44→13:20)
[2018-05-31 05:59] LABS: #Lymphocytes 0.8 thou/uL (1.20-3.40); #Monocytes 0.5 thou/uL (0.11-0.59); %Basophils 0.1 % (0.0-1.0); %Eosinophils 0.1 % (0.0-10.0); %Lymphocytes 8.8 % (21.0-51.0); %Monocytes 5.2 % (0.0-10.0); %Neutrophils 85.7 % (42.0-75.0); Hemoglobin 11.5 g/dL (14.0-18.0); Mean Corpuscular HGB CONC 32.7 g/dL (32.0-36.0); Mean Corpuscular Hemoglobin 27.4 pg (27.0-31.0); Mean Corpuscular Volume 83.8 fL (78.0-98.0); Platelet Count 215 thou/uL (130-400); RBC Distribution Width 14.6 % (11.5-14.5); Red Blood Cell (RBC) Count 4.21 mill/uL (4.70-6.10); White Blood Cell (WBC) Count 9.3 thou/uL (4.8-10.8)
[2018-05-31 06:13] LABS: Anion Gap 13 mmol/L (10-20); BUN (Urea Nitrogen) 38 mg/dL (8.4-25.7); Calc. Creatinine Clearance 34 mL/min (70-130); Calcium 7.5 mg/dL (7.8-10.44); Carbon Dioxide 24 mmol/L (23-31); Chloride 106 mmol/L (98-107); Estimated GFR-MDRD 38; Glucose 171 mg/dL (83-110); Potassium 3.9 mmol/L (3.5-5.1); Sodium 139 mmol/L (136-145)
[2018-05-31] MEDS: Enoxaparin Sodium 80 MG/0.8 ML SYRINGE SC SCH (08:28)
[2018-05-31] MEDS: hydrALAZINE 25 MG TAB PO SCH ×3 (08:29→20:41)
[2018-05-31] MEDS: HumaLOG 300 UNITS/3 ML VIAL SC PRN ×3 (08:29→17:30)
[2018-05-31] MEDS: Carvedilol 3.125 MG TAB PO SCH ×2 (08:29→17:31)
[2018-05-31] MEDS: predniSONE 20 MG TAB PO SCH (08:29)
--- NOTE | 2018-05-31 15:24 | PDOC.PN ---
- Subjective Encounter Start Date: 05/31/18 Encounter Start Time: 09:00 Pt seen for followup re: acute systolic CHF. Feels better. - Objective Resuscitation Status - Order Detail: 05/29/18 01:43 Resuscitation Status Routine Resuscitation Status: FULL: Full Resuscitation MAR Reviewed: Yes Vital Signs & Weight: Vital Signs (12 hours) Temp Pulse Resp BP BP Pulse Ox 05/31/18 11:30 97.7 F 85 20 135/89 93 L 05/31/18 08:29 86 133/94 H 05/31/18 07:17 97.8 F 86 18 133/94 H 94 L 05/31/18 05:03 96 05/31/18 03:47 97.8 F 84 16 117/72 96 Weight Weight 147 lb 4.8 oz I&O: 05/30/18 05/31/18 06/01/18 06:59 06:59 06:59 Intake Total 1140 254 Output Total 1000 1075 Balance 140 -821 Result Diagrams: 05/31/18 05:24 05/31/18 05:24 Additional Labs: Accuchecks 05/30/18 16:36 POC Glucose 242 H EKG Reviewed by me: Yes (Tele: NSR) Phys Exam - Physical Examination Constitutional: NAD HEENT: moist MMs Neck: supple Respiratory: clear to auscultation bilateral Cardiovascular: RRR Gastrointestinal: soft Neurological: moves all 4 limbs Psychiatric: normal affect Dx/Plan (1) Acute systolic congestive heart failure, NYHA class 3 Code(s): I50.21 - ACUTE SYSTOLIC (CONGESTIVE) HEART FAILURE Status: Acute Comment: Improving with diuretics (2) CKD stage 3 secondary to diabetes Code(s): E11.22 - TYPE 2 DIABETES MELLITUS W DIABETIC CHRONIC KIDNEY DISEASE; N18.3 - CHRONIC KIDNEY DISEASE, STAGE 3 (MODERATE) Status: Acute Comment: creatinine mildly improved (3) NSTEMI (non-ST elevated myocardial infarction) Code(s): I21.4 - NON-ST ELEVATION (NSTEMI) MYOCARDIAL INFARCTION Status: Acute Comment: cardiology following (4) HTN (hypertension) Code(s): I10 - ESSENTIAL (PRIMARY) HYPERTENSION Status: Chronic Qualifiers: Hypertension type: essential hypertension Qualified Code(s): I10 - Essential (primary) hypertension Comment: controlled (5) DM2 (diabetes mellitus, type 2) Status: Chronic Qualifiers: Chronic kidney disease stage: stage 3 (moderate) Comment: on accuchecks, insulin sliding scale - Plan * . Review of Systems - Review of Systems Cardiovascular: negative: chest pain, palpitations, orthopnea, paroxysmal nocturnal dyspnea, edema, light headedness Gastrointestinal: negative: Nausea, Vomiting, Abdominal Pain, Diarrhea, Constipation, Melena, Hematochezia - Medications/Allergies Allergies/Adverse Reactions: Allergies Allergy/AdvReac Type Severity Reaction Status Date / Time No Known Allergies Allergy Verified 05/29/18 03:43 Medications: Current Medications Acetaminophen (Tylenol) 650 mg PO Q4H PRN PRN Reason: Headache/Fever/Mild Pain (1-3) Aspirin (Aspirin Chewable) 81 mg PO DAILY [facility] Last Admin: 05/31/18 08:29 Dose: 81 mg Bisacodyl (Dulcolax) 10 mg PO DAILYPRN PRN PRN Reason: Constipation Carvedilol (Coreg) 3.125 mg PO BID-[facility] Last Admin: 05/31/18 08:29 Dose: 3.125 mg Dextrose/Water (Dextrose 50%) 25 gm SLOW IVP PRN PRN PRN Reason: Hypoglycemia Enoxaparin Sodium (Lovenox) 30 mg SC 0900 [facility] Furosemide (Lasix) 40 mg SLOW IVP 0600,1400 [facility] Last Admin: 05/31/18 13:20 Dose: 40 mg Glucagon (Glucagon) 1 mg IM PRN PRN PRN Reason: Hypoglycemia Hydralazine HCl (Apresoline) 25 mg PO TID [facility] Last Admin: 05/31/18 08:29 Dose: 25 mg Dextrose/Water (D5w) 1,000 mls @ 0 mls/hr IV .Q0M PRN PRN Reason: Hypoglycemia Insulin Human Lispro (Humalog) 0 units SC .MILD SLIDING SCALE PRN PRN Reason: Mild Correctional Scale Last Admin: 05/31/18 11:34 Dose: 3 unit Isosorbide Mononitrate (Imdur Er) 30 mg PO DAILY [facility] Last Admin: 05/31/18 08:29 Dose: 30 mg Levofloxacin (Levaquin) 750 mg PO 0600 [facility] Last Admin: 05/31/18 05:44 Dose: 750 mg Prednisone (Prednisone) 40 mg PO QAM-[facility] Stop: 06/02/18 08:01 Last Admin: 05/31/18 08:29 Dose: 40 mg Senna/Docusate Sodium (Senokot S) 2 tab PO BIDPRN PRN PRN Reason: Constipation Sodium Chloride (Flush - Normal Saline) 10 ml IVF Q12HR [facility] Last Admin: 05/31/18 08:27 Dose: 10 ml Sodium Chloride (Flush - Normal Saline) 10 ml IVF PRN PRN PRN Reason: Saline Flush Last Admin: 05/29/18 06:15 Dose: 10 ml
--- NOTE | 2018-05-31 17:46 | PRG ---
DATE OF SERVICE: 05/31/2018 Winston Bains remains clinically stable. He grew 2 organisms out of his pleural space, one Staph and one Strep. This is unusual given that his pleural fluid was transudative and relatively acellular, and very little clinical change overall. I would, for now continue antimicrobial therapy as per Dr. Robertson's note yesterday, although it would be unusual for this not to be a contaminant given the lack of white cells in the pleural space. Job ID: [id number]
[2018-06-01] MEDS: Furosemide 40 MG/4 ML VIAL SLOW IVP SCH ×2 (05:35→14:55)
[2018-06-01 05:39] LABS: Anion Gap 12 mmol/L (10-20); BUN (Urea Nitrogen) 38 mg/dL (8.4-25.7); Calc. Creatinine Clearance 35 mL/min (70-130); Calcium 7.6 mg/dL (7.8-10.44); Carbon Dioxide 28 mmol/L (23-31); Chloride 103 mmol/L (98-107); Estimated GFR-MDRD 42; Glucose 158 mg/dL (83-110); Potassium 3.7 mmol/L (3.5-5.1); Sodium 139 mmol/L (136-145)
[2018-06-01 05:47] LABS: #Lymphocytes 0.8 thou/uL (1.20-3.40); #Monocytes 0.6 thou/uL (0.11-0.59); #Neutrophils 6.9 thou/uL (1.40-6.50); %Basophils 0.1 % (0.0-1.0); %Eosinophils 0.2 % (0.0-10.0); %Lymphocytes 9.3 % (21.0-51.0); %Monocytes 7.7 % (0.0-10.0); %Neutrophils 82.8 % (42.0-75.0); Hemoglobin 12.8 g/dL (14.0-18.0); Mean Corpuscular HGB CONC 31.3 g/dL (32.0-36.0); Mean Corpuscular Hemoglobin 26.3 pg (27.0-31.0); Mean Corpuscular Volume 83.9 fL (78.0-98.0); Platelet Count 190 thou/uL (130-400); RBC Distribution Width 14.9 % (11.5-14.5); Red Blood Cell (RBC) Count 4.89 mill/uL (4.70-6.10); White Blood Cell (WBC) Count 8.4 thou/uL (4.8-10.8)
[2018-06-01] MEDS ORDERED: Enoxaparin Sodium 80 MG/0.8 ML SYRINGE SC SCH (09:00)
[2018-06-01] MEDS: hydrALAZINE 25 MG TAB PO SCH ×4 (09:53→20:12)
[2018-06-01] MEDS: predniSONE 20 MG TAB PO SCH (09:54)
[2018-06-01] MEDS: Enoxaparin Sodium 30 MG/0.3 ML SYRINGE SC SCH (09:55)
[2018-06-01] MEDS: Carvedilol 3.125 MG TAB PO SCH (09:55)
[2018-06-01] MEDS: HumaLOG 300 UNITS/3 ML VIAL SC PRN ×3 (09:56→18:26)
[2018-06-01] MEDS ORDERED: Carvedilol 3.125 MG TAB PO SCH ×3 (11:00→17:00)
--- NOTE | 2018-06-01 14:44 | PRG ---
DATE OF SERVICE: 06/01/2018 SUBJECTIVE: Winston Bains said he is feeling better. He is in no distress. OBJECTIVE: VITAL SIGNS: Stable. He is afebrile. Blood pressure 144/100, heart rate 83, respiratory rate 20, oximetry is 94% on room air. LUNGS: Clear. HEART: Regular rhythm. ABDOMEN: Soft and nontender. EXTREMITIES: Without edema. IMPRESSION AND PLAN: 1. Congestive heart failure. 2. Coag-negative Staphylococcus and Streptococcus intermedius isolated from pleural fluid think would be an unusual contaminant infected pleural space nor does he clinically. We will continue current medical management. His renal function continues to improve. His creatinine is down to 1.58. He is still on Levaquin. He is still on prednisone. We will continue supportive care and continue to follow. Job ID: [id number]
--- NOTE | 2018-06-01 15:02 | PDOC.PN ---
- Subjective Encounter Start Date: 06/01/18 Encounter Start Time: 08:40 Pt seen for followup re: acute systolic CHF. Breathing better. No chest pain. - Objective Resuscitation Status - Order Detail: 05/29/18 01:43 Resuscitation Status Routine Resuscitation Status: FULL: Full Resuscitation MAR Reviewed: Yes Vital Signs & Weight: Vital Signs (12 hours) Temp Pulse Resp BP BP Pulse Ox 06/01/18 14:56 82 138/90 06/01/18 09:53 83 144/100 H 06/01/18 08:00 97 F L 83 20 147/99 H 94 L 06/01/18 03:57 96.5 F L 84 19 145/97 H 97 Weight Weight 145 lb 11.2 oz I&O: 05/31/18 06/01/18 06/02/18 06:59 06:59 06:59 Intake Total 254 1273 Output Total 1075 2200 250 [facility] -821 -927 -250 Result Diagrams: 06/02/18 04:42 06/02/18 04:42 Additional Labs: Accuchecks 06/01/18 06/01/18 05/31/18 11:19 05:32 20:58 POC Glucose 212 H 172 H 221 H 05/31/18 05/31/18 05/31/18 17:08 11:26 05:52 POC Glucose 188 H 203 H 170 H 05/30/18 20:32 POC Glucose 177 H EKG Reviewed by me: Yes (Tele: NSR) Phys Exam - Physical Examination Constitutional: NAD HEENT: moist MMs Neck: supple Bibasal crackles Cardiovascular: RRR Gastrointestinal: soft Neurological: moves all 4 limbs Psychiatric: normal affect Dx/Plan (1) Acute systolic congestive heart failure, NYHA class 3 Code(s): I50.21 - ACUTE SYSTOLIC (CONGESTIVE) HEART FAILURE Status: Acute Comment: Improving, continue diuretics (2) CKD stage 3 secondary to diabetes Code(s): E11.22 - TYPE 2 DIABETES MELLITUS W DIABETIC CHRONIC KIDNEY DISEASE; N18.3 - CHRONIC KIDNEY DISEASE, STAGE 3 (MODERATE) Status: Acute Comment: creatinine improved to 1.58 today (3) NSTEMI (non-ST elevated myocardial infarction) Code(s): I21.4 - NON-ST ELEVATION (NSTEMI) MYOCARDIAL INFARCTION Status: Acute Comment: stable (4) HTN (hypertension) Code(s): I10 - ESSENTIAL (PRIMARY) HYPERTENSION Status: Chronic Qualifiers: Hypertension type: essential hypertension Qualified Code(s): I10 - Essential (primary) hypertension Comment: controlled (5) DM2 (diabetes mellitus, type 2) Status: Chronic Qualifiers: Chronic kidney disease stage: stage 3 (moderate) Comment: on accuchecks, insulin sliding scale - Plan * . Review of Systems - Review of Systems Cardiovascular: negative: chest pain, palpitations, orthopnea, paroxysmal nocturnal dyspnea, edema, light headedness Gastrointestinal: negative: Nausea, Vomiting, Abdominal Pain, Diarrhea, Constipation, Melena, Hematochezia - Medications/Allergies Allergies/Adverse Reactions: Allergies Allergy/AdvReac Type Severity Reaction Status Date / Time No Known Allergies Allergy Verified 05/29/18 03:43 Medications: Current Medications Acetaminophen (Tylenol) 650 mg PO Q4H PRN PRN Reason: Headache/Fever/Mild Pain (1-3) Aspirin (Aspirin Chewable) 81 mg PO DAILY [facility] Last Admin: 06/01/18 09:55 Dose: 81 mg Bisacodyl (Dulcolax) 10 mg PO DAILYPRN PRN PRN Reason: Constipation Carvedilol (Coreg) 6.25 mg PO BID-[facility] Dextrose/Water (Dextrose 50%) 25 gm SLOW IVP PRN PRN PRN Reason: Hypoglycemia Enoxaparin Sodium (Lovenox) 30 mg SC 0900 [facility] Last Admin: 06/01/18 09:55 Dose: 30 mg Furosemide (Lasix) 40 mg SLOW IVP 0600,1400 [facility] Last Admin: 06/01/18 14:55 Dose: 40 mg Glucagon (Glucagon) 1 mg IM PRN PRN PRN Reason: Hypoglycemia Hydralazine HCl (Apresoline) 25 mg PO TID [facility] Last Admin: 06/01/18 14:56 Dose: 25 mg Dextrose/Water (D5w) 1,000 mls @ 0 mls/hr IV .Q0M PRN PRN Reason: Hypoglycemia Insulin Human Lispro (Humalog) 0 units SC .MILD SLIDING SCALE PRN PRN Reason: Mild Correctional Scale Last Admin: 06/01/18 11:33 Dose: 3 unit Isosorbide Mononitrate (Imdur Er) 30 mg PO DAILY [facility] Last Admin: 06/01/18 09:55 Dose: 30 mg Levofloxacin (Levaquin) 750 mg PO 0600 [facility] Last Admin: 06/01/18 05:35 Dose: 750 mg Prednisone (Prednisone) 40 mg PO QAM-[facility] Stop: 06/02/18 08:01 Last Admin: 06/01/18 09:54 Dose: 40 mg Senna/Docusate Sodium (Senokot S) 2 tab PO BIDPRN PRN PRN Reason: Constipation Sodium Chloride (Flush - Normal Saline) 10 ml IVF Q12HR [facility] Last Admin: 06/01/18 09:56 Dose: 10 ml Sodium Chloride (Flush - Normal Saline) 10 ml IVF PRN PRN PRN Reason: Saline Flush Last Admin: 06/01/18 14:56 Dose: 10 ml
[2018-06-01] MEDS: Carvedilol 6.25 MG TAB PO SCH (18:11)
[2018-06-02 05:28] LABS: #Lymphocytes 0.8 thou/uL (1.20-3.40); #Monocytes 0.6 thou/uL (0.11-0.59); #Neutrophils 6.1 thou/uL (1.40-6.50); %Basophils 0.2 % (0.0-1.0); %Eosinophils 0.2 % (0.0-10.0); %Monocytes 8.4 % (0.0-10.0); %Neutrophils 80.3 % (42.0-75.0); Hemoglobin 12.8 g/dL (14.0-18.0); Mean Corpuscular HGB CONC 33.1 g/dL (32.0-36.0); Mean Corpuscular Hemoglobin 27.9 pg (27.0-31.0); Mean Corpuscular Volume 84.2 fL (78.0-98.0); Mean Platelet Volume 10.1 fL (7.4-10.4); Platelet Count 212 thou/uL (130-400); RBC Distribution Width 15.3 % (11.5-14.5); Red Blood Cell (RBC) Count 4.58 mill/uL (4.70-6.10); White Blood Cell (WBC) Count 7.6 thou/uL (4.8-10.8)
[2018-06-02 05:46] LABS: Anion Gap 15 mmol/L (10-20); BUN (Urea Nitrogen) 39 mg/dL (8.4-25.7); Calc. Creatinine Clearance 39 mL/min (70-130); Calcium 7.8 mg/dL (7.8-10.44); Carbon Dioxide 24 mmol/L (23-31); Chloride 103 mmol/L (98-107); Estimated GFR-MDRD 49; Glucose 139 mg/dL (83-110); Potassium 3.5 mmol/L (3.5-5.1); Sodium 138 mmol/L (136-145)
[2018-06-02] MEDS: Furosemide 40 MG/4 ML VIAL SLOW IVP SCH ×2 (06:09→14:39)
[2018-06-02] MEDS: predniSONE 20 MG TAB PO SCH (10:16)
[2018-06-02] MEDS: hydrALAZINE 25 MG TAB PO SCH ×3 (10:16→21:20)
[2018-06-02] MEDS: Carvedilol 6.25 MG TAB PO SCH ×2 (10:16→17:46)
[2018-06-02] MEDS ORDERED: Acetaminophen/Codeine 30-300mg Tablet PO PRN (11:20)
[2018-06-02] MEDS ORDERED: Nitroglycerin 0.4 MG TAB (25 Tab Bottle) SL PRN (11:20)
[2018-06-02] MEDS ORDERED: traMADol HCl 50 MG TAB PO PRN (11:20)
[2018-06-02] MEDS ORDERED: Sodium Chloride 0.9% 1,000 ML IV SCH (11:30)
[2018-06-02] MEDS ORDERED: Iopamidol 370 76% 100 ML VIAL ONE (12:54)
[2018-06-02] MEDS: Enoxaparin Sodium 30 MG/0.3 ML SYRINGE SC SCH (13:06)
--- NOTE | 2018-06-02 16:59 | PDOC.PN ---
- Subjective Encounter Start Date: 06/02/18 Encounter Start Time: 10:00 Pt seen for followup re: CHF exacerbation. No new complaints. - Objective Resuscitation Status - Order Detail: 05/29/18 01:43 Resuscitation Status Routine Resuscitation Status: FULL: Full Resuscitation MAR Reviewed: Yes Vital Signs & Weight: Vital Signs (12 hours) Temp Pulse Resp BP BP Pulse Ox 06/02/18 15:30 76 18 147/98 H 97 06/02/18 14:39 78 154/95 H 06/02/18 11:40 80 18 140/96 H 97 06/02/18 10:16 78 132/86 06/02/18 07:40 97.8 F 78 16 132/86 92 L Weight Weight 144 lb 3 oz I&O: 06/01/18 06/02/18 06/03/18 06:59 06:59 06:59 Intake Total 1273 1840 Output Total 2200 2400 Balance -927 -560 Result Diagrams: 06/02/18 04:42 06/02/18 04:42 Additional Labs: Accuchecks 06/02/18 06/01/18 06/01/18 05:26 20:27 16:50 POC Glucose 127 H 206 H 175 H EKG Reviewed by me: Yes (Tele: NSR) Phys Exam - Physical Examination Constitutional: NAD HEENT: moist MMs Neck: supple Respiratory: clear to auscultation bilateral Cardiovascular: RRR Gastrointestinal: soft Neurological: moves all 4 limbs Psychiatric: normal affect Dx/Plan (1) Acute systolic congestive heart failure, NYHA class 3 Code(s): I50.21 - ACUTE SYSTOLIC (CONGESTIVE) HEART FAILURE Status: Acute Comment: Improving (2) CKD stage 3 secondary to diabetes Code(s): E11.22 - TYPE 2 DIABETES MELLITUS W DIABETIC CHRONIC KIDNEY DISEASE; N18.3 - CHRONIC KIDNEY DISEASE, STAGE 3 (MODERATE) Status: Acute Comment: creatinine improved to 1.40 today (3) NSTEMI (non-ST elevated myocardial infarction) Code(s): I21.4 - NON-ST ELEVATION (NSTEMI) MYOCARDIAL INFARCTION Status: Acute Comment: stable (4) HTN (hypertension) Code(s): I10 - ESSENTIAL (PRIMARY) HYPERTENSION Status: Chronic Qualifiers: Hypertension type: essential hypertension Qualified Code(s): I10 - Essential (primary) hypertension Comment: controlled (5) DM2 (diabetes mellitus, type 2) Status: Chronic Qualifiers: Chronic kidney disease stage: stage 3 (moderate) Comment: continue accuchecks, insulin sliding scale - Plan * . Review of Systems - Review of Systems Cardiovascular: negative: chest pain, palpitations, orthopnea, paroxysmal nocturnal dyspnea, edema, light headedness Gastrointestinal: negative: Nausea, Vomiting, Abdominal Pain, Diarrhea, Constipation, Melena, Hematochezia - Medications/Allergies Allergies/Adverse Reactions: Allergies Allergy/AdvReac Type Severity Reaction Status Date / Time No Known Allergies Allergy Verified 05/29/18 03:43 Medications: Current Medications Acetaminophen (Tylenol) 650 mg PO Q4H PRN PRN Reason: Headache/Fever/Mild Pain (1-3) Acetaminophen/Codeine Phosphate (Tylenol #3) 1 tab PO Q4H PRN PRN Reason: Mild Pain (1-3) Aspirin (Aspirin Chewable) 81 mg PO DAILY [facility] Last Admin: 06/02/18 10:16 Dose: 81 mg Bisacodyl (Dulcolax) 10 mg PO DAILYPRN PRN PRN Reason: Constipation Carvedilol (Coreg) 6.25 mg PO BID-[facility] Last Admin: 06/02/18 10:16 Dose: 6.25 mg Dextrose/Water (Dextrose 50%) 25 gm SLOW IVP PRN PRN PRN Reason: Hypoglycemia Enoxaparin Sodium (Lovenox) 30 mg SC 0900 [facility] Last Admin: 06/02/18 13:06 Dose: 30 mg Furosemide (Lasix) 40 mg SLOW IVP 0600,1400 [facility] Last Admin: 06/02/18 14:39 Dose: 40 mg Glucagon (Glucagon) 1 mg IM PRN PRN PRN Reason: Hypoglycemia Hydralazine HCl (Apresoline) 25 mg PO TID [facility] Last Admin: 06/02/18 14:39 Dose: 25 mg Dextrose/Water (D5w) 1,000 mls @ 0 mls/hr IV .Q0M PRN PRN Reason: Hypoglycemia Insulin Human Lispro (Humalog) 0 units SC .MILD SLIDING SCALE PRN PRN Reason: Mild Correctional Scale Last Admin: 06/01/18 18:26 Dose: 2 unit Isosorbide Mononitrate (Imdur Er) 30 mg PO DAILY [facility] Last Admin: 12/17/18 10:16 Dose: 30 mg Levofloxacin (Levaquin) 750 mg PO 0600 [facility] Last Admin: 06/02/18 06:09 Dose: 750 mg Nitroglycerin (Nitrostat) 0.4 mg SL Q5MIN PRN PRN Reason: Chest Pain Senna/Docusate Sodium (Senokot S) 2 tab PO BIDPRN PRN PRN Reason: Constipation Sodium Chloride (Flush - Normal Saline) 10 ml IVF Q12HR [facility] Last Admin: 06/02/18 10:16 Dose: 10 ml Sodium Chloride (Flush - Normal Saline) 10 ml IVF PRN PRN PRN Reason: Saline Flush Last Admin: 06/01/18 14:56 Dose: 10 ml Tramadol HCl (Ultram) 50 mg PO Q6H PRN PRN Reason: Moderate Pain (4-6)
[2018-06-02] MEDS: HumaLOG 300 UNITS/3 ML VIAL SC PRN (17:46)
[2018-06-03] MEDS: Furosemide 40 MG/4 ML VIAL SLOW IVP SCH ×2 (05:52→14:54)
[2018-06-03] MEDS: Enoxaparin Sodium 30 MG/0.3 ML SYRINGE SC SCH (08:23)
[2018-06-03] MEDS: Carvedilol 6.25 MG TAB PO SCH ×2 (08:23→16:23)
[2018-06-03] MEDS: hydrALAZINE 25 MG TAB PO SCH ×3 (08:24→23:58)
[2018-06-03 09:23] LABS: #Lymphocytes 0.9 thou/uL (1.20-3.40); #Monocytes 0.8 thou/uL (0.11-0.59); #Neutrophils 7.3 thou/uL (1.40-6.50); %Lymphocytes 9.9 % (21.0-51.0); %Monocytes 9.3 % (0.0-10.0); %Neutrophils 80.8 % (42.0-75.0); Mean Corpuscular HGB CONC 31.6 g/dL (32.0-36.0); Mean Corpuscular Hemoglobin 26.3 pg (27.0-31.0); Mean Corpuscular Volume 83.2 fL (78.0-98.0); Mean Platelet Volume 9.9 fL (7.4-10.4); Platelet Count 226 thou/uL (130-400); RBC Distribution Width 15.3 % (11.5-14.5)
[2018-06-03 09:42] LABS: Anion Gap 14 mmol/L (10-20); BUN (Urea Nitrogen) 40 mg/dL (8.4-25.7); Calc. Creatinine Clearance 35 mL/min (70-130); Carbon Dioxide 24 mmol/L (23-31); Chloride 103 mmol/L (98-107); Estimated GFR-MDRD 45; Glucose 193 mg/dL (83-110); Potassium 3.3 mmol/L (3.5-5.1); Sodium 138 mmol/L (136-145)
[2018-06-03] MEDS ORDERED: guaiFENesin/DM ER PO SCH ×3 (11:45→21:00)
[2018-06-03] MEDS: HumaLOG 300 UNITS/3 ML VIAL SC PRN ×2 (11:47→17:27)
[2018-06-03] MEDS ORDERED: Potassium Chloride 20 MEQ TAB PO SCH (16:00)
[2018-06-03] MEDS ORDERED: Milk Of Magnesia 30 ML UDCUP PO SCH (16:00)
[2018-06-03] MEDS ORDERED: Mineral Oil PER 1 ML PO SCH (16:00)
--- NOTE | 2018-06-03 16:27 | PRG ---
DATE OF SERVICE: 06/03/2018 SERVICE: Pulmonary Medicine. INTERVAL HISTORY: The patient is breathing comfortably. He is on room air. His biggest complaint today is that he has constipation. He has not had a bowel movement since being in the hospital. He does feel the urge to go, but he is having a difficult time passing any stool. OBJECTIVE: VITAL SIGNS: Afebrile, pulse 62, blood pressure 121/79, respirations 16, and saturation 93% on room air. GENERAL: The patient is awake and alert, in no apparent distress. LUNGS: Excellent air entry on the right. There is slightly decreased air entry at the left base. No prolonged expiratory phase or wheezing is appreciated. Dependent crackles are much improved. HEART: Normal rate and regular. ABDOMEN: Soft, nontender, and nondistended. Bowel sounds are positive. MUSCULOSKELETAL: No cyanosis or clubbing. There is no pitting in the bilateral lower extremities. NEUROLOGIC: Grossly nonfocal. LABORATORY DATA: WBC 9.0, hemoglobin 14.0, platelets 226,000. Creatinine 1.51, which is roughly stable, BUN 40. Basic metabolic profile is otherwise unremarkable. Potassium 3.3. Body fluid was consistent with a transudate. Pleural fluid is growing multiple organisms that are likely a contaminant. Respiratory virus panel was negative. Acid-fast smear is negative. Culture currently pending. ASSESSMENT: 1. Acute hypoxic respiratory failure, resolved. 2. Bilateral pleural effusion, status post thoracentesis on the right, demonstrating a very clear transudate. 3. Acute systolic and valvular heart failure. 4. Hypokalemia. DISCUSSION AND PLAN: I gave the patient a single dose of potassium. We will give him some p.o. medications to facilitate a bowel movement. Antibiotics can be interrupted. At this point, he has no further requirements for inpatient Pulmonary or Critical Care opinion, and I will sign off. He should undergo a repeat chest x-ray in the outpatient setting to verify the left-sided effusion resolves with optimization of heart medications. Job ID: [id number]
--- NOTE | 2018-06-03 17:07 | PDOC.PN ---
- Subjective Encounter Start Date: 06/03/18 Encounter Start Time: 09:20 Pt seen for followup re:acute systolic CHF. Feels better. - Objective Resuscitation Status - Order Detail: 05/29/18 01:43 Resuscitation Status Routine Resuscitation Status: FULL: Full Resuscitation Vital Signs & Weight: Vital Signs (12 hours) Temp Pulse Pulse Pulse Resp BP BP 06/03/18 15:18 97.5 F L 80 16 06/03/18 14:54 80 123/81 06/03/18 11:46 97.6 F 62 16 06/03/18 11:32 91 82 121/79 06/03/18 08:24 68 06/03/18 08:19 97.5 F L 68 16 06/03/18 07:07 BP BP Pulse Ox Pulse Ox 06/03/18 15:18 123/81 96 18 14:54 06/03/18 11:46 121/79 93 L 06/03/18 11:32 122/82 94 L 06/03/18 08:24 06/03/18 08:19 132/93 H 95 06/03/18 07:07 97 Weight Weight 140 lb I&O: 06/02/18 06/03/18 06/04/18 06:59 06:59 06:59 Intake Total 1840 800 Output Total 2400 400 Balance -560 400 Result Diagrams: 06/03/18 09:07 06/03/18 09:07 Additional Labs: Accuchecks 06/03/18 06/03/18 06/02/18 11:18 05:25 20:31 POC Glucose 166 H 164 H 225 H Phys Exam - Physical Examination Constitutional: NAD HEENT: moist MMs Neck: supple Respiratory: clear to auscultation bilateral Cardiovascular: RRR Gastrointestinal: soft Neurological: moves all 4 limbs Psychiatric: normal affect Dx/Plan (1) Acute systolic congestive heart failure, NYHA class 3 Code(s): I50.21 - ACUTE SYSTOLIC (CONGESTIVE) HEART FAILURE Status: Acute Comment: Improved, still on IV diuretics (2) CKD stage 3 secondary to diabetes Code(s): E11.22 - TYPE 2 DIABETES MELLITUS W DIABETIC CHRONIC KIDNEY DISEASE; N18.3 - CHRONIC KIDNEY DISEASE, STAGE 3 (MODERATE) Status: Acute Comment: creatinine 1.51 today (3) NSTEMI (non-ST elevated myocardial infarction) Code(s): I21.4 - NON-ST ELEVATION (NSTEMI) MYOCARDIAL INFARCTION Status: Acute Comment: stable (4) HTN (hypertension) Code(s): I10 - ESSENTIAL (PRIMARY) HYPERTENSION Status: Chronic Qualifiers: Hypertension type: essential hypertension Qualified Code(s): I10 - Essential (primary) hypertension Comment: controlled (5) DM2 (diabetes mellitus, type 2) Status: Chronic Qualifiers: Chronic kidney disease stage: stage 3 (moderate) Comment: reasonably controlled - Plan * . Review of Systems - Review of Systems Constitutional: weakness. negative: fever, chills, sweats, malaise Respiratory: SOB with Excertion. negative: Cough, Shortness of Breath, Pleuritic Pain, Wheezing Cardiovascular: negative: chest pain, palpitations, orthopnea, paroxysmal nocturnal dyspnea, edema, light headedness - Medications/Allergies Allergies/Adverse Reactions: Allergies Allergy/AdvReac Type Severity Reaction Status Date / Time No Known Allergies Allergy Verified 05/29/18 03:43 Medications: Current Medications Acetaminophen (Tylenol) 650 mg PO Q4H PRN PRN Reason: Headache/Fever/Mild Pain (1-3) Acetaminophen/Codeine Phosphate (Tylenol #3) 1 tab PO Q4H PRN PRN Reason: Mild Pain (1-3) Aspirin (Aspirin Chewable) 81 mg PO DAILY [facility] Last Admin: 06/03/18 08:23 Dose: 81 mg Bisacodyl (Dulcolax) 10 mg PO DAILYPRN PRN PRN Reason: Constipation Carvedilol (Coreg) 6.25 mg PO BID-[facility] Last Admin: 06/03/18 16:23 Dose: 6.25 mg Dextrose/Water (Dextrose 50%) 25 gm SLOW IVP PRN PRN PRN Reason: Hypoglycemia Enoxaparin Sodium (Lovenox) 30 mg SC 0900 [facility] Last Admin: 06/03/18 08:23 Dose: 30 mg Furosemide (Lasix) 40 mg SLOW IVP 0600,1400 [facility] Last Admin: 06/03/18 14:54 Dose: 40 mg Glucagon (Glucagon) 1 mg IM PRN PRN PRN Reason: Hypoglycemia Guaifenesin/Dextromethorphan (Mucinex Dm) 1 tab PO Q12HR [facility] Hydralazine HCl (Apresoline) 25 mg PO TID [facility] Last Admin: 06/03/18 14:54 Dose: 25 mg Dextrose/Water (D5w) 1,000 mls @ 0 mls/hr IV .Q0M PRN PRN Reason: Hypoglycemia Insulin Human Lispro (Humalog) 0 units SC .MILD SLIDING SCALE PRN PRN Reason: Mild Correctional Scale Last Admin: 06/03/18 11:47 Dose: 2 unit Isosorbide Mononitrate (Imdur Er) 30 mg PO DAILY [facility] Last Admin: 06/03/18 08:24 Dose: 30 mg Lactulose (Lactulose) 30 gm PO NOW [facility] Stop: 06/03/18 18:00 Last Admin: 06/03/18 16:21 Dose: 30 gm Magnesium Hydroxide (Milk Of Magnesium) 30 ml PO NOW [facility] Stop: 06/03/18 18:00 Last Admin: 06/03/18 16:22 Dose: 30 ml Mineral Oil (Mineral Oil) 30 ml PO NOW [facility] Stop: 06/03/18 18:00 Nitroglycerin (Nitrostat) 0.4 mg SL Q5MIN PRN PRN Reason: Chest Pain Potassium Chloride (K-Dur) 40 meq PO NOW [facility] Stop: 06/03/18 18:00 Last Admin: 06/03/18 16:23 Dose: 40 meq Senna/Docusate Sodium (Senokot S) 2 tab PO BIDPRN PRN PRN Reason: Constipation Sodium Chloride (Flush - Normal Saline) 10 ml IVF Q12HR [facility] Last Admin: 06/03/18 08:24 Dose: 10 ml Sodium Chloride (Flush - Normal Saline) 10 ml IVF PRN PRN PRN Reason: Saline Flush Last Admin: 06/01/18 14:56 Dose: 10 ml Tramadol HCl (Ultram) 50 mg PO Q6H PRN PRN Reason: Moderate Pain (4-6)
--- NOTE | 2018-06-03 17:54 | PDOC.CTH ---
Cardiology Progress Note - Subjective He is doing well. Breathing better. No chest pain. - Objective Vital Signs Temp Pulse Pulse Pulse Resp BP BP 06/03/18 15:18 97.5 F L 80 16 06/03/18 14:54 80 123/81 06/03/18 11:46 97.6 F 62 16 06/03/18 11:32 91 82 121/79 06/03/18 08:24 68 06/03/18 08:19 97.5 F L 68 16 06/03/18 07:07 BP BP Pulse Ox Pulse Ox 06/03/18 15:18 123/81 96 06/03/18 14:54 06/03/18 11:46 121/79 93 L 06/03/18 11:32 122/82 94 L 06/03/18 08:24 06/03/18 08:19 132/93 H 95 06/03/18 07:07 97 Weight 140 lb 06/02/18 06/03/18 06/04/18 06:59 06:59 06:59 Intake Total 1840 800 Output Total 2400 400 Balance -560 400 - Physical Examination General/Neuro: alert & oriented x3, NAD Neck: no JVD present Lungs: CTA, unlabored respirations Heart: RRR Abdomen: NT/ND Extremities: other: (no edema.) - Telemetry Telemetry Rhythm: NSR - Labs Result Diagrams: 06/03/18 09:07 06/03/18 09:07 Troponin/CKMB CK-MB (CK-2) 5.9 ng/mL (0-6.6) 05/28/18 19:57 Troponin I 0.946 ng/mL (< 0.028) H* 05/29/18 02:18 - Assessment/Plan 1. Acute on chronic systolic heart failure. 2. Dilated CM EF at 10-15% 3. Ischemic CM 4. Multivessel CAD. 5. Carotid disease. 6. Leukemia. PLAN: - He would need CABG for revascularization. I think he currently is too weak for this and would not do well. - After long conversation with him and his daughter will do medical therapy for now. - We spoke about a lifevest and they are interested in this.
[2018-06-03] MEDS: guaiFENesin/DM ER PO SCH (21:01)
[2018-06-04 05:38] LABS: #Lymphocytes 1.1 thou/uL (1.20-3.40); #Monocytes 0.6 thou/uL (0.11-0.59); #Neutrophils 6.6 thou/uL (1.40-6.50); %Eosinophils 0.4 % (0.0-10.0); %Lymphocytes 13.2 % (21.0-51.0); %Monocytes 7.6 % (0.0-10.0); %Neutrophils 78.8 % (42.0-75.0); Hemoglobin 14.6 g/dL (14.0-18.0); Mean Corpuscular HGB CONC 32.5 g/dL (32.0-36.0); Mean Corpuscular Hemoglobin 27.4 pg (27.0-31.0); Mean Corpuscular Volume 84.2 fL (78.0-98.0); Mean Platelet Volume 10.4 fL (7.4-10.4); Platelet Count 198 thou/uL (130-400); Red Blood Cell (RBC) Count 5.33 mill/uL (4.70-6.10); White Blood Cell (WBC) Count 8.4 thou/uL (4.8-10.8)
[2018-06-04 05:52] LABS: Anion Gap 17 mmol/L (10-20); BUN (Urea Nitrogen) 37 mg/dL (8.4-25.7); Calc. Creatinine Clearance 40 mL/min (70-130); Carbon Dioxide 21 mmol/L (23-31); Chloride 104 mmol/L (98-107); Estimated GFR-MDRD 54; Glucose 113 mg/dL (83-110); Potassium 3.4 mmol/L (3.5-5.1); Sodium 139 mmol/L (136-145)
[2018-06-04] MEDS: Furosemide 40 MG/4 ML VIAL SLOW IVP SCH ×2 (06:30→16:01)
[2018-06-04] MEDS: guaiFENesin/DM ER PO SCH ×2 (09:23→20:43)
[2018-06-04] MEDS: hydrALAZINE 25 MG TAB PO SCH ×3 (09:23→20:43)
[2018-06-04] MEDS: Enoxaparin Sodium 30 MG/0.3 ML SYRINGE SC SCH (09:23)
[2018-06-04] MEDS: Carvedilol 6.25 MG TAB PO SCH ×2 (09:24→16:01)
--- NOTE | 2018-06-04 13:09 | PDOC.PN ---
- Subjective Encounter Start Date: 06/04/18 Encounter Start Time: 08:00 Pt seen for followup re; CHF exacerbation. Feels weak. - Objective Resuscitation Status - Order Detail: 05/29/18 01:43 Resuscitation Status Routine Resuscitation Status: FULL: Full Resuscitation Vital Signs & Weight: Vital Signs (12 hours) Temp Pulse Resp BP BP BP Pulse Ox 06/04/18 09:24 140/92 H 06/04/18 09:23 80 06/04/18 08:00 93 L 06/04/18 07:50 97.6 F 80 16 127/80 93 L 06/04/18 07:28 93 L 06/04/18 03:49 97.5 F L 65 22 H 172/81 H 93 L Weight Weight 135 lb 9.6 oz I&O: 06/03/18 06/04/18 06/05/18 06:59 06:59 06:59 Intake Total 800 1174 Output Total 400 500 Balance 400 674 Result Diagrams: 06/04/18 04:41 06/04/18 04:41 Additional Labs: Accuchecks 06/04/18 06/04/18 06/03/18 10:40 05:49 20:39 POC Glucose 195 H 114 H 195 H 06/03/18 17:21 POC Glucose 181 H Phys Exam - Physical Examination Constitutional: NAD HEENT: moist MMs Neck: supple Respiratory: clear to auscultation bilateral Cardiovascular: RRR Gastrointestinal: soft Neurological: moves all 4 limbs Psychiatric: normal affect Dx/Plan (1) Acute systolic congestive heart failure, NYHA class 3 Code(s): I50.21 - ACUTE SYSTOLIC (CONGESTIVE) HEART FAILURE Status: Acute Comment: Improved (2) CKD stage 3 secondary to diabetes Code(s): E11.22 - TYPE 2 DIABETES MELLITUS W DIABETIC CHRONIC KIDNEY DISEASE; N18.3 - CHRONIC KIDNEY DISEASE, STAGE 3 (MODERATE) Status: Acute Comment: Improved (3) Physical deconditioning Code(s): R53.81 - OTHER MALAISE Status: Acute Comment: ambulate patient (4) NSTEMI (non-ST elevated myocardial infarction) Code(s): I21.4 - NON-ST ELEVATION (NSTEMI) MYOCARDIAL INFARCTION Status: Acute Comment: stable (5) HTN (hypertension) Code(s): I10 - ESSENTIAL (PRIMARY) HYPERTENSION Status: Chronic Qualifiers: Hypertension type: essential hypertension Qualified Code(s): I10 - Essential (primary) hypertension Comment: controlled (6) DM2 (diabetes mellitus, type 2) Status: Chronic Qualifiers: Chronic kidney disease stage: stage 3 (moderate) Comment: reasonably controlled Review of Systems - Review of Systems Constitutional: weakness. negative: fever, chills, sweats, malaise Cardiovascular: negative: chest pain, palpitations, orthopnea, paroxysmal nocturnal dyspnea, edema, light headedness - Medications/Allergies Allergies/Adverse Reactions: Allergies Allergy/AdvReac Type Severity Reaction Status Date / Time No Known Allergies Allergy Verified 05/29/18 03:43 Medications: Current Medications Acetaminophen (Tylenol) 650 mg PO Q4H PRN PRN Reason: Headache/Fever/Mild Pain (1-3) Acetaminophen/Codeine Phosphate (Tylenol #3) 1 tab PO Q4H PRN PRN Reason: Mild Pain (1-3) Aspirin (Aspirin Chewable) 81 mg PO DAILY [facility] Last Admin: 06/04/18 09:23 Dose: 81 mg Bisacodyl (Dulcolax) 10 mg PO DAILYPRN PRN PRN Reason: Constipation Carvedilol (Coreg) 6.25 mg PO BID-[facility] Last Admin: 06/04/18 09:24 Dose: 6.25 mg Dextrose/Water (Dextrose 50%) 25 gm SLOW IVP PRN PRN PRN Reason: Hypoglycemia Enoxaparin Sodium (Lovenox) 30 mg SC 0900 [facility] Last Admin: 06/04/18 09:23 Dose: 30 mg Furosemide (Lasix) 40 mg SLOW IVP 0600,1400 [facility] Last Admin: 06/04/18 06:30 Dose: 40 mg Glucagon (Glucagon) 1 mg IM PRN PRN PRN Reason: Hypoglycemia Guaifenesin/Dextromethorphan (Mucinex Dm) 1 tab PO Q12HR [facility] Last Admin: 06/04/18 09:23 Dose: 1 tab Hydralazine HCl (Apresoline) 25 mg PO TID [facility] Last Admin: 06/04/18 09:23 Dose: 25 mg Dextrose/Water (D5w) 1,000 mls @ 0 mls/hr IV .Q0M PRN PRN Reason: Hypoglycemia Insulin Human Lispro (Humalog) 0 units SC .MILD SLIDING SCALE PRN PRN Reason: Mild Correctional Scale Last Admin: 06/03/18 17:27 Dose: 2 unit Isosorbide Mononitrate (Imdur Er) 30 mg PO DAILY [facility] Last Admin: 06/04/18 09:23 Dose: 30 mg Nitroglycerin (Nitrostat) 0.4 mg SL Q5MIN PRN PRN Reason: Chest Pain Senna/Docusate Sodium (Senokot S) 2 tab PO BIDPRN PRN PRN Reason: Constipation Sodium Chloride (Flush - Normal Saline) 10 ml IVF Q12HR [facility] Last Admin: 06/04/18 09:29 Dose: 10 ml Sodium Chloride (Flush - Normal Saline) 10 ml IVF PRN PRN PRN Reason: Saline Flush Last Admin: 06/04/18 06:30 Dose: 10 ml Tramadol HCl (Ultram) 50 mg PO Q6H PRN PRN Reason: Moderate Pain (4-6)
[2018-06-04] MEDS: Atorvastatin Calcium 40 MG TAB PO SCH (20:43)
--- NOTE | 2018-06-04 20:50 | PDOC.CTH ---
Cardiology Progress Note - Subjective He is still feeling tired. he is now coughing more. Breathing unchanged from yesterday. - Objective Vital Signs Temp Pulse Resp BP BP Pulse Ox 06/04/18 16:01 79 122/82 06/04/18 15:20 97.4 F L 79 18 122/82 95 06/04/18 09:24 140/92 H 06/04/18 09:23 80 Weight 135 lb 9.6 oz 06/03/18 06/04/18 06/05/18 06:59 06:59 06:59 Intake Total 800 1174 Output Total 400 500 Balance 400 674 - Physical Examination General/Neuro: alert & oriented x3, NAD Neck: no JVD present Lungs: other: (Reduced breat sounds bilat.) Heart: RRR Abdomen: NT/ND, soft Extremities: other: (no edema) - Telemetry Telemetry Rhythm: NSR - Labs Result Diagrams: 06/04/18 04:41 06/04/18 04:41 Troponin/CKMB CK-MB (CK-2) 5.9 ng/mL (0-6.6) 05/28/18 19:57 Troponin I 0.946 ng/mL (< 0.028) H* 05/29/18 02:18 - Assessment/Plan 1. Acute on chronic systolic heart failure. 2. Dilated CM EF at 10-15% 3. Ischemic CM 4. Multivessel CAD. 5. Carotid disease. 6. Leukemia. PLAN: - He would need CABG for revascularization. I think he currently is too weak for this and would not do well. - Continue medical therapy. - Lifevest set up before discharge. - Will get CXR as i feel his effusions may be getting worse. - Will re evaluate tomorrow see if he is ready to go, he seems weaker today. - Replace KSabra
--- NOTE | 2018-06-04 23:02 | RAD ---
TWO VIEWS CHEST: 06/04/18 PROVIDED CLINICAL HISTORY: Shortness of breath. FINDINGS: Comparison 05/28/18. The cardiac and mediastinal silhouette is within normal limits. The lungs appear clear. There is no e vidence for pneumothorax. Pulmonary vasculature is now within normal limits. Small bilateral pleural effusions are suggested on the lateral view. IMPRESSION: Small bilateral pleural effusions are suspected. POS: [facility]
[2018-06-05 05:26] LABS: #Eosinphils 0.1 thou/uL (0.0-0.7); #Monocytes 0.5 thou/uL (0.11-0.59); #Neutrophils 6.9 thou/uL (1.40-6.50); %Basophils 0.1 % (0.0-1.0); %Eosinophils 1.4 % (0.0-10.0); %Lymphocytes 11.6 % (21.0-51.0); %Monocytes 5.7 % (0.0-10.0); %Neutrophils 81.2 % (42.0-75.0); Hemoglobin 15.3 g/dL (14.0-18.0); Mean Corpuscular HGB CONC 32.9 g/dL (32.0-36.0); Mean Corpuscular Hemoglobin 27.7 pg (27.0-31.0); Mean Corpuscular Volume 84.1 fL (78.0-98.0); Mean Platelet Volume 10.6 fL (7.4-10.4); Platelet Count 176 thou/uL (130-400); RBC Distribution Width 15.7 % (11.5-14.5); Red Blood Cell (RBC) Count 5.51 mill/uL (4.70-6.10); White Blood Cell (WBC) Count 8.5 thou/uL (4.8-10.8)
[2018-06-05 05:46] LABS: ALT (SGPT) 156 U/L (8-55); AST (SGOT) 50 U/L (5-34); Albumin 2.5 g/dL (3.4-4.8); Alkaline Phosphatase 111 U/L (40-150); Anion Gap 15 mmol/L (10-20); BUN (Urea Nitrogen) 38 mg/dL (8.4-25.7); Bilirubin, Total 1.5 mg/dL (0.2-1.2); Calc. Creatinine Clearance 39 mL/min (70-130); Calcium 8.1 mg/dL (7.8-10.44); Carbon Dioxide 25 mmol/L (23-31); Chloride 103 mmol/L (98-107); Cholesterol 191 mg/dl (< 200 Desired); Estimated GFR-MDRD 52; Globulin 4.4 g/dL (2.4-3.5); Glucose 134 mg/dL (83-110); HDL Cholesterol 24 mg/dL (>60 Neg Risk); LDL Cholesterol, Calculated 129 mg/dL; Potassium 3.2 mmol/L (3.5-5.1); Protein, Total 6.9 g/dL (5.8-8.1); Sodium 140 mmol/L (136-145); Triglycerides 189 mg/dL (Less than 150)
[2018-06-05] MEDS: Furosemide 40 MG/4 ML VIAL SLOW IVP SCH ×2 (06:31→14:48)
[2018-06-05] MEDS: Enoxaparin Sodium 30 MG/0.3 ML SYRINGE SC SCH (08:38)
[2018-06-05] MEDS: Carvedilol 6.25 MG TAB PO SCH ×2 (08:38→18:17)
[2018-06-05] MEDS: hydrALAZINE 25 MG TAB PO SCH ×3 (08:39→20:59)
[2018-06-05] MEDS: guaiFENesin/DM ER PO SCH ×2 (08:39→21:00)
[2018-06-05] MEDS: HumaLOG 300 UNITS/3 ML VIAL SC PRN (12:06)
--- NOTE | 2018-06-05 12:37 | PDOC.PN ---
- Subjective Encounter Start Date: 06/05/18 Encounter Start Time: 07:20 Pt seen for followup re: systolic CHF. Feels better. - Objective Resuscitation Status - Order Detail: 05/29/18 01:43 Resuscitation Status Routine Resuscitation Status: FULL: Full Resuscitation MAR Reviewed: Yes Vital Signs & Weight: Vital Signs (12 hours) Temp Pulse Resp BP BP Pulse Ox 06/05/18 11:58 97.4 F L 75 16 108/71 94 L 06/05/18 07:47 97.0 F L 82 17 139/88 93 L 06/05/18 03:29 97.5 F L 60 20 118/90 95 Weight Weight 132 lb 8 oz I&O: 06/04/18 06/05/18 06/06/18 06:59 06:59 06:59 Intake Total 1174 200 Output Total 500 400 Balance 674 -200 Result Diagrams: 06/05/18 04:53 06/05/18 04:53 Additional Labs: Accuchecks 06/05/18 06/05/18 06/04/18 11:11 05:52 20:33 POC Glucose 272 H 116 H 177 H 06/04/18 16:58 POC Glucose 188 H EKG Reviewed by me: Yes (Tele: NSR) Phys Exam - Physical Examination Constitutional: NAD HEENT: moist MMs Neck: supple Respiratory: clear to auscultation bilateral Cardiovascular: RRR Gastrointestinal: soft Neurological: moves all 4 limbs Psychiatric: normal affect Dx/Plan (1) Acute systolic congestive heart failure, NYHA class 3 Code(s): I50.21 - ACUTE SYSTOLIC (CONGESTIVE) HEART FAILURE Status: Acute Comment: Improved, not ambulating much (2) CKD stage 3 secondary to diabetes Code(s): E11.22 - TYPE 2 DIABETES MELLITUS W DIABETIC CHRONIC KIDNEY DISEASE; N18.3 - CHRONIC KIDNEY DISEASE, STAGE 3 (MODERATE) Status: Acute Comment: Improved (3) Physical deconditioning Code(s): R53.81 - OTHER MALAISE Status: Acute Comment: ambulate patient (4) NSTEMI (non-ST elevated myocardial infarction) Code(s): I21.4 - NON-ST ELEVATION (NSTEMI) MYOCARDIAL INFARCTION Status: Acute Comment: stable (5) HTN (hypertension) Code(s): I10 - ESSENTIAL (PRIMARY) HYPERTENSION Status: Chronic Qualifiers: Hypertension type: essential hypertension Qualified Code(s): I10 - Essential (primary) hypertension Comment: controlled (6) DM2 (diabetes mellitus, type 2) Status: Chronic Qualifiers: Chronic kidney disease stage: stage 3 (moderate) Comment: reasonable control - Plan out of bed/ambulate * . Review of Systems - Review of Systems Respiratory: negative: Cough, Shortness of Breath, SOB with Excertion, Pleuritic Pain, Wheezing Cardiovascular: negative: chest pain, palpitations, orthopnea, paroxysmal nocturnal dyspnea, edema, light headedness - Medications/Allergies Allergies/Adverse Reactions: Allergies Allergy/AdvReac Type Severity Reaction Status Date / Time No Known Allergies Allergy Verified 05/29/18 03:43 Medications: Current Medications Acetaminophen (Tylenol) 650 mg PO Q4H PRN PRN Reason: Headache/Fever/Mild Pain (1-3) Acetaminophen/Codeine Phosphate (Tylenol #3) 1 tab PO Q4H PRN PRN Reason: Mild Pain (1-3) Aspirin (Aspirin Chewable) 81 mg PO DAILY [facility] Last Admin: 06/05/18 08:38 Dose: 81 mg Atorvastatin Calcium (Lipitor) 40 mg PO HS [facility] Last Admin: 06/04/18 20:43 Dose: 40 mg Bisacodyl (Dulcolax) 10 mg PO DAILYPRN PRN PRN Reason: Constipation Carvedilol (Coreg) 6.25 mg PO BID-[facility] Last Admin: 06/05/18 08:38 Dose: 6.25 mg Dextrose/Water (Dextrose 50%) 25 gm SLOW IVP PRN PRN PRN Reason: Hypoglycemia Enoxaparin Sodium (Lovenox) 30 mg SC 0900 [facility] Last Admin: 06/05/18 08:38 Dose: 30 mg Furosemide (Lasix) 40 mg SLOW IVP 0600,1400 [facility] Last Admin: 06/05/18 06:31 Dose: 40 mg Glucagon (Glucagon) 1 mg IM PRN PRN PRN Reason: Hypoglycemia Guaifenesin/Dextromethorphan (Mucinex Dm) 1 tab PO Q12HR [facility] Last Admin: 06/05/18 08:39 Dose: 1 tab Hydralazine HCl (Apresoline) 25 mg PO TID [facility] Last Admin: 06/05/18 08:39 Dose: 25 mg Dextrose/Water (D5w) 1,000 mls @ 0 mls/hr IV .Q0M PRN PRN Reason: Hypoglycemia Insulin Human Lispro (Humalog) 0 units SC .MILD SLIDING SCALE PRN PRN Reason: Mild Correctional Scale Last Admin: 06/05/18 12:06 Dose: 4 unit Isosorbide Mononitrate (Imdur Er) 30 mg PO DAILY [facility] Last Admin: 06/05/18 08:39 Dose: 30 mg Nitroglycerin (Nitrostat) 0.4 mg SL Q5MIN PRN PRN Reason: Chest Pain Senna/Docusate Sodium (Senokot S) 2 tab PO BIDPRN PRN PRN Reason: Constipation Sodium Chloride (Flush - Normal Saline) 10 ml IVF Q12HR [facility] Last Admin: 06/05/18 08:39 Dose: 10 ml Sodium Chloride (Flush - Normal Saline) 10 ml IVF PRN PRN PRN Reason: Saline Flush Last Admin: 06/05/18 06:31 Dose: 10 ml Tramadol HCl (Ultram) 50 mg PO Q6H PRN PRN Reason: Moderate Pain (4-6)
[2018-06-05] MEDS: Atorvastatin Calcium 40 MG TAB PO SCH (21:00)
[2018-06-06 05:32] LABS: #Eosinphils 0.2 thou/uL (0.0-0.7); #Lymphocytes 1.2 thou/uL (1.20-3.40); #Monocytes 0.5 thou/uL (0.11-0.59); #Neutrophils 6.2 thou/uL (1.40-6.50); %Basophils 0.2 % (0.0-1.0); %Lymphocytes 15.1 % (21.0-51.0); %Monocytes 5.7 % (0.0-10.0); %Neutrophils 76.9 % (42.0-75.0); Hemoglobin 14.7 g/dL (14.0-18.0); Mean Corpuscular HGB CONC 32.4 g/dL (32.0-36.0); Mean Corpuscular Hemoglobin 27.1 pg (27.0-31.0); Mean Corpuscular Volume 83.8 fL (78.0-98.0); Mean Platelet Volume 10.8 fL (7.4-10.4); Platelet Count 172 thou/uL (130-400); RBC Distribution Width 15.7 % (11.5-14.5); Red Blood Cell (RBC) Count 5.42 mill/uL (4.70-6.10); White Blood Cell (WBC) Count 8.1 thou/uL (4.8-10.8)
[2018-06-06] MEDS: Furosemide 40 MG/4 ML VIAL SLOW IVP SCH (06:05)
--- NOTE | 2018-06-06 08:24 | PDOC.CTH ---
Cardiology Progress Note - Subjective He is doing well. No chest pain, tightness, pressure. - Objective Vital Signs Temp Pulse Resp BP BP Pulse Ox 06/06/18 03:31 96.6 F L 71 19 113/81 95 06/05/18 23:45 97.8 F 73 118/78 06/05/18 20:59 75 104/71 Weight 135 lb 06/05/18 06/06/18 06/07/18 06:59 06:59 06:59 Intake Total 200 854 Output Total 400 625 Balance -200 229 - Physical Examination General/Neuro: alert & oriented x3, NAD Neck: no JVD present Lungs: CTA, unlabored respirations Heart: RRR Abdomen: NT/ND Extremities: other: (no edema) - Telemetry Telemetry Rhythm: NSR - Labs Result Diagrams: 06/06/18 04:30 06/05/18 04:53 Troponin/CKMB CK-MB (CK-2) 5.9 ng/mL (0-6.6) 05/28/18 19:57 Troponin I 0.946 ng/mL (< 0.028) H* 05/29/18 02:18 - Assessment/Plan 1. Acute on chronic systolic heart failure. 2. Dilated CM EF at 10-15% 3. Ischemic CM 4. Multivessel CAD. 5. Carotid disease. 6. Leukemia. PLAN: - He would need CABG for revascularization. I think he currently is too weak for this and would not do well. - Continue medical therapy. - Will stop hydralazine and start ACEI as creatinine better. Continue Imdur. - Lifevest in place. - May discharge any time from cardiac perspective.
[2018-06-06] MEDS: Enoxaparin Sodium 30 MG/0.3 ML SYRINGE SC SCH (08:59)
[2018-06-06] MEDS ORDERED: Furosemide 20 MG TAB PO SCH (09:00)
[2018-06-06] MEDS: guaiFENesin/DM ER PO SCH (09:00)
[2018-06-06] MEDS ORDERED: Lisinopril 2.5 MG TAB PO SCH (09:00)
[2018-06-06] MEDS: Carvedilol 6.25 MG TAB PO SCH ×2 (09:00→17:03)
[2018-06-06] MEDS: Furosemide 40 MG TAB PO SCH ×2 (09:03→14:46)
[2018-06-06 12:33] VITALS: TEMP 96.2
[2018-06-06] MEDS: HumaLOG 300 UNITS/3 ML VIAL SC PRN (12:36)
--- NOTE | 2018-06-06 13:36 | DIS ---
DATE OF ADMISSION: 05/29/2018 DATE OF DISCHARGE: 06/06/2018 PRIMARY CARE PROVIDER: Fran Arvizu MD DISCHARGE DIAGNOSES: 1. Acute systolic congestive heart failure. 2. Chronic kidney disease, stage 3. 3. Physical deconditioning. 4. Non-ST elevation myocardial infarction. 5. Ischemic cardiomyopathy. CONDITION: Condition of the patient on the day of discharge: Stable. I assessed Mr. Bains on the day of discharge. He denies any chest pain or shortness of breath. Vital signs are stable. He is ambulating in the hallways. S1 and S2 are heard, regular. Lungs are clear to auscultation bilaterally. DISCHARGE MEDICATIONS: 1. Aspirin 81 mg daily. 2. Metformin 850 mg 2 times a day. 3. Lipitor 40 mg at bedtime. 4. Coreg 6.25 mg 2 times a day. 5. Lasix 40 mg 2 times a day. 6. Isosorbide mononitrate 30 mg daily. 7. Lisinopril 2.5 mg daily. 8. Potassium chloride 10 mEq daily. CONSULTATIONS DURING THIS HOSPITALIZATION: 1. Pulmonology, Dr. Robertson. 2. Cardiology, Dr. Norris. HOSPITAL COURSE: Mr. Bains is a pleasant 82-year-old gentleman, who was admitted to [facility] on May 29, 2018, for acute respiratory failure secondary to congestive heart failure exacerbation. Please refer to Dr. Cordero's history and physical note dated May 29, 2018, for further details. He was seen by Cardiology and Pulmonology Services. A 2D echocardiogram showed left ventricular ejection fraction of 15% to 20%, mildly dilated left atrium, mitral annular calcification, severe mitral regurgitation, and [id number] tricuspid regurgitation. 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 He underwent cardiac catheterization on May 29, which showed severe multivessel coronary artery disease. Cardiology Service discussed with his family regarding possible medical therapy versus coronary artery bypass graft. He was started on medical therapy. He also had pleural effusions and underwent thoracentesis. The pleural fluid did not show any malignant cells. He continued to improve gradually with diuretics given for congestive heart failure. He also had elevated creatinine of 1.50 at the time of admission. It peaked to 2.09 on May 30, 2018. It was 1.32 on June 05, 2018. He is being discharged home on his home dose of metformin as well as new medication in the form of lisinopril. He is advised to have his creatinine and electrolytes rechecked through his primary care provider's office in 5 to 7 days. On June 06, he has white count 8100, hemoglobin 14.7, and platelet count 172,000. On June 05, he had sodium 140; potassium 3.2, which was replaced, blood urea nitrogen of 38, and creatinine 1.32. Total bilirubin was 1.5, AST 50, ALT 156, and albumin was 2.5. His fasting lipid profile showed cholesterol 191, triglycerides 189, LDL cholesterol 129, and HDL cholesterol 24. He is also advised to have his liver profile checked through his primary care provider's office in 5 to 7 days, since he is being discharged home on statin. Many thanks for allowing me to participate in your patient's care. Please feel free to contact me with any questions or concerns. Job ID: [id number]
[2018-06-06 17:04] VITALS: BP 104/71
[2018-06-07] MEDS ORDERED: glyBURIDE 2.5 MG TAB PO SCH (08:00)
== END 2018-06-06 17:23 | disposition home or self-care (01) | DRG 280 ==
LOC: ERS 19:13 → IMCU/EMU 05-29 01:33 → 2NO 05-30 18:53
PROVIDERS: ADMIT Internal Medicine; ATTEND Internal Medicine
PROC: 0W9B3ZX Drainage of Left Pleural Cavity, Percutaneous Approach, Diagnostic (ICD-10-PCS; 2018-05-30)
PROC: 4A023N7 Measurement of Cardiac Sampling and Pressure, Left Heart, Percutaneous Approach (ICD-10-PCS; principal; 2018-06-02)
PROC: B2111ZZ Fluoroscopy of Multiple Coronary Arteries using Low Osmolar Contrast (ICD-10-PCS; 2018-06-02)
DX: I21.4 Non-ST elevation (NSTEMI) myocardial infarction (principal); J96.01 Acute respiratory failure with hypoxia; I50.23 Acute on chronic systolic (congestive) heart failure; I13.0 Hypertensive heart and chronic kidney disease with heart failure and stage 1 through stage 4 chronic kidney disease, or unspecified chronic kidney disease; N17.9 Acute kidney failure, unspecified; J90 Pleural effusion, not elsewhere classified; I42.0 Dilated cardiomyopathy; C92.10 Chronic myeloid leukemia, BCR/ABL-positive, not having achieved remission; E11.22 Type 2 diabetes mellitus with diabetic chronic kidney disease; I25.10 Atherosclerotic heart disease of native coronary artery without angina pectoris; N18.3 Chronic kidney disease, stage 3 (moderate); R53.81 Other malaise; I25.5 Ischemic cardiomyopathy; E87.5 Hyperkalemia; J20.9 Acute bronchitis, unspecified; Z79.84 Long term (current) use of oral hypoglycemic drugs
CPT/HCPCS: 36415; 36416; 51702; 70450; 70496; 70498; 71045; 71046; 71250; 80048; 80053; 80061; 82140; 82553; 82805; 82945; 83615; 83690; 83880; 83986; 84146; 84157; 84443; 84484; 85025; 85060; 87070; 87076; 87116; 87205; 87206; 87633; 87798; 88112; 89051; 93005; 93306; 93454; 93798; 94760; 96361; 96372; 96374; 96375; 96376; C1769; J1644; J1650; J1940; J2001; J2270; J2405; J7506; S0028

== ENCOUNTER 2018-07-02 19:27 | Inpatient (IN) | payer MEDICAID, SELFPAY ==
--- NOTE | 2018-07-02 20:23 | RAD ---
RADIOGRAPH CHEST 1 VIEW: 05/02/19 HISTORY: 82-year-old male with leukemia, diabetes, and heart disease, presents with generalized weakness. FINDINGS: There are no air space densities, pulmonary edema, pneumothorax, or cardiomegaly. The lateral costop hrenic angles are sharp. IMPRESSION: No acute cardiopulmonary findings. fidel [] POS: DEZ
[2018-07-02 20:36] LABS: #Eosinphils 0.1 thou/uL (0.0-0.7); #Lymphocytes 1.2 thou/uL (1.20-3.40); #Monocytes 0.4 thou/uL (0.11-0.59); #Neutrophils 3.5 thou/uL (1.40-6.50); %Basophils 0.3 % (0.0-1.0); %Eosinophils 2.2 % (0.0-10.0); %Lymphocytes 23.1 % (21.0-51.0); %Monocytes 7.3 % (0.0-10.0); Hemoglobin 14.6 g/dL (14.0-18.0); Mean Corpuscular HGB CONC 33.7 g/dL (32.0-36.0); Mean Corpuscular Hemoglobin 27.9 pg (27.0-31.0); Mean Corpuscular Volume 82.8 fL (78.0-98.0); Mean Platelet Volume 9.4 fL (7.4-10.4); Platelet Count 139 thou/uL (130-400); RBC Distribution Width 16.4 % (11.5-14.5); Red Blood Cell (RBC) Count 5.24 mill/uL (4.70-6.10); White Blood Cell (WBC) Count 5.2 thou/uL (4.8-10.8)
[2018-07-02 20:54] LABS: ALT (SGPT) 59 U/L (8-55); AST (SGOT) 77 U/L (5-34); Albumin 2.9 g/dL (3.4-4.8); Alkaline Phosphatase 135 U/L (40-150); Anion Gap 16 mmol/L (10-20); BUN (Urea Nitrogen) 31 mg/dL (8.4-25.7); Bilirubin, Total 0.9 mg/dL (0.2-1.2); CK (CPK) 120 U/L (30-200); Calc. Creatinine Clearance 0 mL/min (70-130); Calcium 8.2 mg/dL (7.8-10.44); Carbon Dioxide 22 mmol/L (23-31); Chloride 101 mmol/L (98-107); Estimated GFR-MDRD 51; Globulin 4.4 g/dL (2.4-3.5); Glucose 157 mg/dL (83-110); Lipase 76 U/L (8-78); Potassium 4.3 mmol/L (3.5-5.1); Protein, Total 7.3 g/dL (5.8-8.1); Sodium 135 mmol/L (136-145)
[2018-07-02 21:23] LABS: CKMB 2.3 ng/mL (0-6.6)
[2018-07-02] MEDS ORDERED: Enoxaparin Sodium 60 MG/0.6 ML SYRINGE ONE (22:59)
[2018-07-02 23:16] LABS: Critical Call Chem Troponin I RESULT DECREASING
[2018-07-03] MEDS ORDERED: Ondansetron PF 4 MG/2 ML Vial IVP PRN (00:24)
[2018-07-03] MEDS ORDERED: Acetaminophen 325 MG TAB PO PRN (00:24)
[2018-07-03 02:52] LABS: #Eosinphils 0.1 thou/uL (0.0-0.7); #Lymphocytes 1.4 thou/uL (1.20-3.40); #Monocytes 0.4 thou/uL (0.11-0.59); #Neutrophils 3.3 thou/uL (1.40-6.50); %Basophils 0.9 % (0.0-1.0); %Eosinophils 2.6 % (0.0-10.0); %Lymphocytes 26.8 % (21.0-51.0); %Monocytes 7.4 % (0.0-10.0); %Neutrophils 62.4 % (42.0-75.0); Hemoglobin 13.2 g/dL (14.0-18.0); Mean Corpuscular HGB CONC 33.6 g/dL (32.0-36.0); Mean Corpuscular Hemoglobin 27.8 pg (27.0-31.0); Mean Corpuscular Volume 82.9 fL (78.0-98.0); Mean Platelet Volume 10.4 fL (7.4-10.4); Platelet Count 123 thou/uL (130-400); RBC Distribution Width 16.2 % (11.5-14.5); Red Blood Cell (RBC) Count 4.75 mill/uL (4.70-6.10); White Blood Cell (WBC) Count 5.3 thou/uL (4.8-10.8)
[2018-07-03 03:10] LABS: Anion Gap 14 mmol/L (10-20); BUN (Urea Nitrogen) 30 mg/dL (8.4-25.7); Calc. Creatinine Clearance 0 mL/min (70-130); Calcium 7.7 mg/dL (7.8-10.44); Carbon Dioxide 23 mmol/L (23-31); Chloride 105 mmol/L (98-107); Estimated GFR-MDRD 60; Glucose 99 mg/dL (83-110); Potassium 4.4 mmol/L (3.5-5.1); Sodium 138 mmol/L (136-145)
[2018-07-03] MEDS ORDERED: Potassium Chloride 20 MEQ TAB ONE (09:27)
[2018-07-03] MEDS ORDERED: Furosemide 40 MG TAB ONE (09:27)
[2018-07-03] MEDS: Potassium Chloride 10 MEQ TAB PO SCH (09:51)
[2018-07-03] MEDS: Furosemide 40 MG TAB PO SCH ×2 (09:52→14:29)
[2018-07-03] MEDS: Carvedilol 6.25 MG TAB PO SCH ×2 (11:07→18:08)
[2018-07-03] MEDS: Enoxaparin Sodium 30 MG/0.3 ML SYRINGE SC SCH (14:29)
--- NOTE | 2018-07-03 18:16 | PDOC.PN ---
- Subjective Encounter Start Date: 07/03/18 Encounter Start Time: 18:00 Subjective: f/u for anorexia and gen weakness with recent NV, severe multi- vessel -: CAD on med mgmt and ICM with EF 15-20%. 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 - Objective Resuscitation Status - Order Detail: 07/03/18 00:24 Resuscitation Status Routine Resuscitation Status: FULL: Full Resuscitation MAR Reviewed: Yes Vital Signs & Weight: Vital Signs (12 hours) Temp Pulse Resp BP BP Pulse Ox 07/03/18 18:08 116/77 07/03/18 16:29 97.7 F 69 16 117/70 97 07/03/18 13:40 97.4 F L 73 16 96 07/03/18 11:07 116/77 Weight Weight 138 lb 3.2 oz Result Diagrams: 07/03/18 00:41 07/03/18 00:41 Additional Labs: Accuchecks 07/02/18 19:47 POC Glucose 155 H Laboratory Tests 05/28/18 05/28/18 05/29/18 19:57 23:26 02:18 Plt Count Creatinine Troponin I 0.858 H* 0.890 H* 0.946 H* 06/18/18 07/02/18 07/02/18 16:57 20:18 20:18 Plt Count Creatinine 1.64 H 1.34 H Troponin I 0.767 H* 07/02/18 07/02/18 07/03/18 20:18 22:32 00:41 Plt Count 139 Creatinine Troponin I 0.738 H* 0.721 H* Radiology Reviewed by me: Yes (PCXR - no acute process) EKG Reviewed by me: Yes (Tele - SR) Phys Exam - Physical Examination cachetic, pallor, ill-appearing, frail HEENT: PERRLA, sclera anicteric, oral pharynx no lesions Neck: no nodes, no JVD, supple, full ROM Respiratory: no wheezing, no rales, no rhonchi, clear to auscultation bilateral S1, S2 Cardiovascular: RRR, no rub, gallop Gastrointestinal: soft, non-tender, no distention, positive bowel sounds generalized atrophy Musculoskeletal: no edema, pulses present Neurological: normal sensation Skin: normal turgor, cap refill <2 seconds Dx/Plan (1) Anorexia Code(s): R63.0 - ANOREXIA Status: Acute Comment: Suspect chronic, consider Megace, likely multifactorial given CHF, advanced CAD and CML on chemotherapy (2) Moderate protein-calorie malnutrition Code(s): E44.0 - MODERATE PROTEIN-CALORIE MALNUTRITION Status: Chronic Comment: Ensure TID, Megace 800mg daily (3) CAD (coronary artery disease) Code(s): I25.10 - ATHSCL HEART DISEASE OF [place] CORONARY ARTERY W/O ANG PCTRS Status: Chronic Comment: Severe, multi-vessel dz, med mgmt, likely end- stage process (4) CML (chronic myelocytic leukemia) Code(s): C92.10 - CHRONIC MYELOID LEUK, BCR/ABL-POSITIVE, NOT ACHIEVE REMIS Status: Chronic Comment: Continue chemotherapy (5) Physical deconditioning Code(s): R53.81 - OTHER MALAISE Status: Acute Comment: PT for functional assessment (6) DM2 (diabetes mellitus, type 2) Status: Chronic Qualifiers: Chronic kidney disease stage: stage 3 (moderate) Comment: ISS, serial accuchecks - Plan plan discussed w/ family, PT/OT, medical social consultant, DVT proph w/SCDs Continue supportive mgmt -: PT evaluation for functional assessment -: Palliative care consult -: Continue ASA, Lipitor, Coreg -: Start Megace 800mg daily * AM lab: BMP
[2018-07-03] MEDS: Atorvastatin Calcium 40 MG TAB PO SCH (21:09)
[2018-07-04 06:46] LABS: Anion Gap 15 mmol/L (10-20); BUN (Urea Nitrogen) 21 mg/dL (8.4-25.7); Calc. Creatinine Clearance 46 mL/min (70-130); Carbon Dioxide 24 mmol/L (23-31); Chloride 103 mmol/L (98-107); Estimated GFR-MDRD 66; Glucose 82 mg/dL (83-110); Potassium 3.8 mmol/L (3.5-5.1); Sodium 138 mmol/L (136-145)
[2018-07-04] MEDS ORDERED: Prevnar 13-Val Conj/PF 0.5 ML SYRINGE IM ONE (09:00)
[2018-07-04] MEDS: Enoxaparin Sodium 30 MG/0.3 ML SYRINGE SC SCH (09:01)
[2018-07-04] MEDS: Megestrol Acetate 800 MG/20 ML UDCUP PO SCH (09:02)
[2018-07-04] MEDS: Potassium Chloride 10 MEQ TAB PO SCH (09:02)
[2018-07-04] MEDS: Furosemide 40 MG TAB PO SCH ×2 (09:02→13:44)
[2018-07-04] MEDS: Carvedilol 6.25 MG TAB PO SCH ×2 (09:02→16:45)
[2018-07-04] MEDS: ICLUSIG PO SCH (09:03)
--- NOTE | 2018-07-04 14:08 | HP ---
PRIMARY CARE PHYSICIAN: The patient has no PCP. CODE STATUS: Full code. TIME OF EVALUATION: 9 p.m. CHIEF COMPLAINT: Failure to thrive. HISTORY OF PRESENT ILLNESS: This is an 82-year-old male patient, past medical history of leukemia and the patient is being treated with chemotherapy for that reason, also has a history of severe systolic heart failure with ejection fraction reported to in the 15% to 20% range, has been treated by Dr. Norris in the past. The patient also has severe coronary artery disease, being offered CABG, but unable to be done due to significant underlying comorbidities. The patient was brought in by the family because the patient has had failure to thrive, no appetite, occasional nausea, no clear triggers described by the family, no alleviating factors. As an outpatient, also has a history of diabetes. REVIEW OF SYSTEMS: CONSTITUTIONAL: The patient is very weak, fatigued. No fever. No chills. RESPIRATORY: No cough, sputum production, or shortness of breath. CARDIOVASCULAR: No chest pain, palpitation. The patient is wearing the LifeVest. GASTROINTESTINAL: nausea. No vomiting, diarrhea, or abdominal pain. KNITTING TESTER: No dizziness, headache, or feeling lightheaded. GENITOURINARY: No burning on urination. EXTREMITIES: No leg swelling. All other systems were reviewed and negative except for the findings mentioned above. PAST MEDICAL HISTORY: 1. History of systolic heart failure with very depressed of 15%. 2. History of diabetes. 3. History of leukemia, on chemotherapy. PAST SURGICAL HISTORY: No surgical history. PSYCHIATRIC HISTORY: No psych history. SOCIAL HISTORY: Former tobacco user, smoked cigarette, the patient quit smoking more than 10 years ago. No alcohol. No drugs. ALLERGIES: NO KNOWN DRUG ALLERGIES. REPORTED MEDICATIONS: 1. Lasix. 2. Lisinopril. 3. Atorvastatin. 4. Carvedilol. 5. Iclusig. 6. Klor-Con. 7. Sertraline. PHYSICAL EXAMINATION: VITAL SIGNS: On presentation, the patient presented with blood pressure 161/122, with heart rate 87, respiratory rate 18, temperature 98.2. GENERAL APPEARANCE: The patient is very fatigued, alert, oriented, not in any acute distress. HEENT: Eyes, normal conjunctivae. Moist oral mucosa. Anicteric. No JVD. RESPIRATORY: Bilateral air entry. No rales. No wheezes. Symmetric expansion. CARDIOVASCULAR: Normal rate. Regular rhythm. No murmurs. No gallops. No edema. ABDOMEN: Soft. Normal bowel sounds. MUSCULOSKELETAL: Baseline range of motion and strength. No tenderness. SKIN: Warm, intact. No pallor. No rash. No redness. EXTREMITIES: Peripheral pulses are present. Capillary refill seems to be intact. NEURO: No evidence of any new focal weakness. Baseline speech. Cranial nerves seems to be intact. PSYCH: The patient is in good mood. Not anxious. DIAGNOSTIC DATA: EKG was reviewed and the patient has normal sinus rhythm with a rate of 73 with T-wave inversion, mostly in V3, V4. These findings are seen in previous EKGs. QT corrected 458. This EKG was disclosed with the performing physician from the ER. Chest x-ray was reviewed and the patient has no acute cardiopulmonary findings. LABORATORY DATA: Labs were reviewed. The patient's white count 5.2, hemoglobin 14.6, MCV 82.8, platelet count 139. Sodium 135, potassium 4.3, chloride 101, carbon dioxide 32, anion gap 16, BUN 31, creatinine 1.34 that came down to 1.17, GFR 51, glucose 157 that came back to normal, and magnesium 2.0. AST 77, ALT 59. Initial troponin was 0.738, second one 0.721. Procalcitonin was negative. ASSESSMENT AND PLAN: The patient will be placed in the hospital with following medical problems. 1. Leukemia, likely causing failure to thrive in the patient and the patient has anorexia. Oncology may be consulted for any further treatment needed. 2. Congestive heart failure with severe depression of ejection fraction of 15% in previous echos, the patient is wearing LifeVest, it might be causing the sudden leak in troponin, the patient also has advanced coronary artery disease, has been seen by Dr. Norrsi before. No surgery is being offered yet due to severe the patient's underlying comorbidities. We will need to clarify first what is the prognosis of the leukemia in this patient. It has been discussed in details with the family. Daughters are willing to take the patient to [place] and willing to arrange for the travels. Since the patient has a poor prognosis, he would like to spend his last days in [facility]. This needs to be discussed and arranged with the family depending on discussion of prognosis with Oncology. 3. Non-ST elevation myocardial infarction type 2 secondary to underlying congestive heart failure with very depressed ejection fraction. The patient has no chest pain. 4. Acute kidney injury. Creatinine 1.34 on presentation, has been corrected, and this has resolved. 5. Deep venous thrombosis prophylaxis. 6. History of diabetes, not on any medication. 7. History of hypertension, has been controlled, reconcile home medications, adjust as needed. 8. History of coronary artery disease as mentioned, reconcile home medications. Job ID: [id number]
[2018-07-04 14:46] VITALS: BMI 21.5
--- NOTE | 2018-07-04 14:54 | PDOC.PN ---
- Subjective Encounter Start Date: 07/04/18 Encounter Start Time: 14:45 Subjective: f/u for anorexia, gen weakness with recent GA currently medically -: managed. Hx of CML on Ponatinib. Remains weak and sleeping most -: of the day. - Objective Resuscitation Status - Order Detail: 07/03/18 00:24 Resuscitation Status Routine Resuscitation Status: FULL: Full Resuscitation MAR Reviewed: Yes Vital Signs & Weight: Vital Signs (12 hours) Temp Pulse Resp BP BP Pulse Ox 07/04/18 11:38 97.6 F 73 16 104/64 96 07/04/18 07:45 98 07/04/18 07:43 97.1 F L 70 16 116/57 L 98 07/04/18 03:19 97.8 F 70 15 123/71 96 Weight Admit Weight 138 lb 3.2 oz Weight 129 lb 4.8 oz I&O: 07/03/18 07/04/18 07/05/18 06:59 06:59 06:59 Intake Total 75 120 Balance 75 120 Result Diagrams: 07/03/18 00:41 07/04/18 05:43 Additional Labs: Accuchecks 07/02/18 19:47 POC Glucose 155 H Microbiology 07/03/18 00:41 Venous blood - Right Arm Blood Culture - Preliminary Specimen has been received and culture in progress. No Growth to date. 07/03/18 00:41 Venous blood - Left Arm Blood Culture - Preliminary Specimen has been received and culture in progress. No Growth to date. Laboratory Tests 05/28/18 05/28/18 05/29/18 19:57 23:26 02:18 Plt Count BUN Creatinine Troponin I 0.858 H* 0.890 H* 0.946 H* 06/18/18 07/02/18 07/02/18 16:57 20:18 20:18 Plt Count BUN Creatinine 1.64 H 1.34 H Troponin I 0.767 H* 07/02/18 07/02/18 07/03/18 20:18 22:32 00:41 Plt Count 139 BUN Creatinine Troponin I 0.738 H* 0.721 H* 07/03/18 00:41 Plt Count BUN 30 H Creatinine 1.17 Troponin I EKG Reviewed by me: Yes (Tele - SR) Phys Exam - Physical Examination frail, ill-appearing, lethargic HEENT: PERRLA, sclera anicteric, oral pharynx no lesions Neck: no nodes, no JVD, supple, full ROM Respiratory: no wheezing, no rales, no rhonchi S1, S2 Cardiovascular: RRR, no significant murmur, no rub, gallop Gastrointestinal: soft, non-tender, no distention, positive bowel sounds generalized atrophy Musculoskeletal: no edema, pulses present Neurological: normal sensation, moves all 4 limbs Skin: normal turgor, cap refill <2 seconds Dx/Plan (1) Anorexia Code(s): R63.0 - ANOREXIA Status: Acute Comment: Suspect chronic, Megace 800mg daily, likely multifactorial given CHF, advanced CAD and CML on chemotherapy (2) Moderate protein-calorie malnutrition Code(s): E44.0 - MODERATE PROTEIN-CALORIE MALNUTRITION Status: Chronic Comment: Ensure TID, Megace 800mg daily (3) CAD (coronary artery disease) Code(s): I25.10 - ATHSCL HEART DISEASE OF [place] CORONARY ARTERY W/O ANG PCTRS Status: Chronic Comment: Severe, multi-vessel dz, med mgmt, likely end- stage process (4) CML (chronic myelocytic leukemia) Code(s): C92.10 - CHRONIC MYELOID LEUK, BCR/ABL-POSITIVE, NOT ACHIEVE REMIS Status: Chronic Comment: Continue Ponatinib (5) Physical deconditioning Code(s): R53.81 - OTHER MALAISE Status: Acute Comment: PT for functional assessment (6) DM2 (diabetes mellitus, type 2) Status: Chronic Qualifiers: Chronic kidney disease stage: stage 3 (moderate) Comment: ISS, serial accuchecks - Plan plan discussed w/ family, social insurance analyst, DVT proph w/SCDs Continue supportive care -: Megace trial -: Continue ASA/Lipitor -: Discussed at length with daughter regarding poor prognosis and -: persistent clinical decline, family wishing to take him back to [place] * Palliative care consult appreciated * Likely d/c in 24-48h
[2018-07-04] MEDS: Atorvastatin Calcium 40 MG TAB PO SCH (20:41)
[2018-07-05] MEDS ORDERED: PONATINIB HCL PO SCH (09:00)
[2018-07-05] MEDS ORDERED: Potassium Chloride 10 MEQ TAB PO SCH (09:00)
[2018-07-05] MEDS: Carvedilol 6.25 MG TAB PO SCH (10:11)
[2018-07-05] MEDS: Potassium Chloride 10 MEQ TAB PO SCH (10:13)
[2018-07-05] MEDS: Furosemide 40 MG TAB PO SCH ×2 (10:14→15:10)
[2018-07-05] MEDS: Megestrol Acetate 800 MG/20 ML UDCUP PO SCH (10:14)
[2018-07-05] MEDS: Enoxaparin Sodium 30 MG/0.3 ML SYRINGE SC SCH (10:14)
[2018-07-05] MEDS: ICLUSIG PO SCH ×2 (10:14→11:48)
--- NOTE | 2018-07-05 10:58 | EKG ---
Test Reason : Blood Pressure : / mmHG Vent. Rate : 073 BPM Atrial Rate : 073 BPM P-R Int : 120 ms QRS Dur : 098 ms QT Int : 416 ms P-R-T Axes : 037 -19 118 degrees QTc Int : 458 ms Normal sinus rhythm T wave inversion leads V4 - V6 Abnormal ECG Prior ekg shows T wave inversion V3 - V6 Confirmed by STEPHEN GALVAN DO ([id number]), make up editor MARIANGEL LINCOLN ([id number]) on 07/05/2018 10:57:51 AM Referred By: MANDY Confirmed By:STEPHEN GALVAN DO
[2018-07-05 11:45] VITALS: BP 106/57; TEMP 98.5
--- NOTE | 2018-07-05 13:47 | DIS ---
DATE OF ADMISSION: 07/02/2018 DATE OF DISCHARGE: 07/05/2018 DISCHARGE DIAGNOSES: 1. Ischemic cardiomyopathy with ejection fraction of 15%. 2. Demand ischemia secondary to severe coronary artery disease. 3. Severe multivessel coronary artery disease, nonoperative. 4. Moderate protein calorie malnutrition. 5. Anorexia, multifactorial. 6. Chronic myelocytic leukemia. 7. Diabetes mellitus, type 2. CONSULTATIONS: None. PERTINENT LAB AND X-RAY FINDINGS: Troponin I ranged between 0.721 to 0.767. Blood cultures x2 dated 07/03/2018, showed no growth to date. Portable chest x-ray dated 07/02/2018, showed no acute cardiopulmonary process. HOSPITAL COURSE: The patient was admitted after presenting with severe generalized weakness, failure to thrive in the context of severe multivessel coronary artery disease with ischemic cardiomyopathy with ejection fraction of 15%. The patient underwent general evaluation with multifactorial deconditioning and generalized weakness. The patient was noted with moderate protein calorie malnutrition and placed on a trial of Megace 800 mg daily in addition to Ensure t.i.d. The patient's metabolic screening showed evidence of demand ischemia with a chronically elevated troponin I; however, the patient was not in acute congestive heart failure. The patient received Lasix 40 mg b.i.d. in addition to Coreg and aspirin. Due to the patient's multitude of comorbid status and severe deconditioning and end-stage coronary artery disease, discussions were had with the family regarding goals of care. Palliative Care was consulted and family and the patient decided to pursue palliative and comfort measures and return home to [place]. I have examined the patient at the time of discharge and discussed disposition, planning, and followup. The family verbalized understanding and agreement and wishing to return home to [place] as soon as possible. The patient ready for discharge on 07/05/2018. DISCHARGE MEDICATIONS: 1. Coreg 6.25 mg p.o. b.i.d. 2. Lasix 40 mg p.o. b.i.d. 3. Lisinopril 2.5 mg p.o. daily. 4. Ponatinib 45 mg p.o. daily. 5. Klor-Con 10 mEq p.o. daily. 6. Zoloft 50 mg p.o. daily. FOLLOWUP: The patient to return to his hometown in [place] after discharge. CONDITION ON DISCHARGE: Guarded. ACTIVITY: Ad-anne. DIET: Regular as tolerated. CODE STATUS: Full. DISPOSITION: Discharged home, 07/05/2018. TIME SPENT: Total time preparing and coordinating discharge, 35 minutes. Job ID: [id number]
== END 2018-07-05 17:44 | disposition home or self-care (01) | DRG 840 ==
LOC: ERS 19:27 → ERHOLD 21:35 → 2NO 07-03 13:48
PROVIDERS: ADMIT Hospitalist; ATTEND Hospitalist
DX: C92.10 Chronic myeloid leukemia, BCR/ABL-positive, not having achieved remission (principal); I21.A1 Myocardial infarction type 2; E44.0 Moderate protein-calorie malnutrition; I13.0 Hypertensive heart and chronic kidney disease with heart failure and stage 1 through stage 4 chronic kidney disease, or unspecified chronic kidney disease; I50.22 Chronic systolic (congestive) heart failure; N17.9 Acute kidney failure, unspecified; I25.10 Atherosclerotic heart disease of native coronary artery without angina pectoris; E11.22 Type 2 diabetes mellitus with diabetic chronic kidney disease; N18.3 Chronic kidney disease, stage 3 (moderate); R29.6 Repeated falls; Z91.81 History of falling; Z87.891 Personal history of nicotine dependence; E86.0 Dehydration; I25.5 Ischemic cardiomyopathy; Z68.22 Body mass index [BMI] 22.0-22.9, adult
CPT/HCPCS: 36415; 36416; 71045; 80048; 80053; 82550; 82553; 83690; 83735; 84145; 84484; 85025; 87040; 90471; 90662; 90670; 93005; 96360; 96361; 96372; G0008; G0009; J1650